=== PATIENT | female | born 1955 | race Caucasian/White ===

== ENCOUNTER 2021-12-03 15:36 | Emergency (ER) | payer MEDICARE, BC, SELFPAY ==
[2021-12-03 15:40] VITALS: BP 123/77; PULSE 79; RESP 18; TEMP 36.6; O2SAT 99; BMI 25.3
[2021-12-03 16:00] LABS: Appearance Urine Clear (Clear); Bilirubin Urine Negative (Negative); Blood Urine Negative (Negative); Color Urine Yellow (Yellow); Glucose Urine Negative (Negative); Ketones Urine Negative (Negative); Leukocyte Esterase Urine Trace (Negative); Nitrite Urine Negative (Negative); Protein Urine Negative (Negative); Specific Gravity Urine >= 1.030 (1.000-1.030); Urobilinogen Urine 0.2 (0.2-1.0); pH Urine 5.5 (5.0-8.5)
[2021-12-03 16:12] LABS: Squamous Epithelial Cell Urine Few (None-Few); WBC Urine 0-2 (0-5)
--- NOTE | 2021-12-03 17:40 | ED_ITS ---
HPI - General Adult General Time Seen by Provider: 17:40 Date Seen: 12/03/21 Chief complaint: Back Injury/Pain Stated complaint: Lower back/stomach/groin pain Time Seen by Provider: 12/03/21 17:40 Source: patient, RN notes reviewed and old records reviewed Mode of arrival: ambulatory Limitations: no limitations History of Present Illness HPI narrative: Patient is a very pleasant 66 with history of hypertension comes the emergency for low back patient notes that for few months she has had low. She notes that she cannot recall any specific injury and the pain does not go down into legs. She states that there was a thought that perhaps this was a kidney stone but she has not noticed any blood in her urine. She denies fever or chills. She notes that now in the past week she has had pain that wraps around onto her left abdomen and now involves the entire lower abdomen. She did tell nursing staff that she has had approximately 3 bowel movements today and that she feels somewhat bloated. She denies dysuria or hematuria. She has not had fever or chills. She notes a 15 lb weight loss over the past year but attributes that to not eating as much as she lost her and does not cook for herself patient denies any fever or chills or symptoms of COVID. Related Data Home Medications Medication Instructions Recorded Confirmed lisinopril 10 mg tablet 10 mg DAILY 12/03/21 sertraline 25 mg tablet 12.5 mg Q24H 12/03/21 Allergies Allergy/AdvReac Type Severity Reaction Status Date / Time No Known Drug Allergies Allergy Verified 12/03/21 15:47 Review of Systems Status of ROS: Reports: 10 or more systems reviewed and unremarkable except as noted in History and below Const: Reports: change in weight ( 15 lb weight loss); Denies: fever or chills Eyes: Denies: change in vision or blurry vision ENMT: Denies: throat pain, neck pain or difficulty swallowing Cardio: Denies: chest pain, palpitations or shortness of breath with exertion Resp: Denies: shortness of breath or cough GI: Reports: abdominal pain ( lower abdomen left greater than right) and nausea ( mild); Denies: vomiting, diarrhea or difficulty swallowing : Denies: painful urination, urinary frequency or blood in urine Musculo: Reports: back pain; Denies: neck pain or extremity pain Integ/Breast: Denies: rash Neuro: Denies: headache Psych: Denies: anxiety Endo: Denies: excessive urination [facility] Medical History No significant past medical history Social History Smoking Status: Never smoker Do you use any of these nicotine containing products: None How often do you have a drink containing alcohol: never How often do you have six or more drinks on one occasion: Never AUDIT-C Alcohol total score: 0 Non-prescribed substance use: denies use service: No Exam Const: Vital Signs, click to edit/add: Vital Signs - 24 hr 12/03/21 15:40 12/03/21 20:05 Temperature 97.8 F Pulse Rate [Right Pulse Oximeter] 79 65 Respiratory Rate 18 16 Blood Pressure [Ri ght Upper Arm] 123/77 137/88 Pulse Oximetry 99 99 Oxygen Delivery Me thod Room Air Room Air Documenting provider has reviewed patient's vital signs: yes Common normals: no apparent distress, average body habitus, oriented x3, no limitations, healthy appearing, alert and well nourished General appearance: cooperative, comfortable and well kempt HENMT: Common normals: normocephalic Head and scalp: normocephalic Eye: Common normals: PERRL General eye: normal appearance of both eyes Pupil: PERRL Neck & C-Spine: Common normals: full ROM and supple Resp: Common normals: normal respiratory effort and clear to auscultation bilaterally Effort & inspection: able to speak in complete sentences Auscultation: clear to auscultation bilaterally Cardio: Common normals: regular rate and regular rhythm Rate: regular rate Rhythm: regular rhythm GI: Common normals: soft to palpation and non-tender; mass(es) Palpation: soft : Common normals: no CVA tenderness Bladder/kidney exam: no CVA tenderness Back & Pelvis: Common normals: no CVA tenderness and no thoracic nor lumbar tenderness Lumbar spine/lower back: other soft tissue findings ( well-healed scar lumbar midline) Sacrum: no erythema Other: no evidence of blistering, rash. Extremity: Common normals: normal to inspection Neuro: Common normals: oriented x3 Sensorium/orientation: alert Motor exam: strength 5/5 throughout Psych: Common normals: mental status grossly normal and thought process normal Appearance: well kempt Thought process: normal thought process Skin: Common normals: no rashes or lesions noted General skin exam: no rashes or lesions noted Course Course Hospital Course: Patient has had low back pain now with radiation of the pain to the lower abdomen especially on the left. Exam is fairly benign. But given patient's symptoms, weight loss would recommend CT of the abdomen as well as laboratory studies to include a inflammatory markings as well as a CBC, comprehensive panel, urinalysis. Reevaluation(s) Reevaluation #1: Patient noted to have reassuring laboratory values which includes a normal CRP, white count. No abnormal LFTs. Urinalysis with 2-5 RBCs. Otherwise no evidence of UTI. Vital Signs Vital signs: Initial Vital Signs Temperature 97.8 F 12/03/21 15:40 Temperature Source Temporal Artery Scan 12/03/21 15:40 Pulse Rate 79 12/03/21 15:40 Respiratory Rate 18 12/03/21 15:40 Blood Pressure 123/77 12/03/21 15:40 Blood Pressure Mean 92 12/03/21 15:40 Blood Pressure Position Sitting 12/03/21 15:40 Pulse Oximetry 99 12/03/21 15:40 Oxygen Delivery Method 12/03/21 15:40 Vital Signs Temperature 97.8 F 12/03/21 15:40 Pulse Rate 79 12/03/21 15:40 Respiratory Rate 18 12/03/21 15:40 Blood Pressure 123/77 12/03/21 15:40 Pulse Oximetry 99 12/03/21 15:40 Oxygen Delivery Method 12/03/21 15:40 Temperature 97.8 F 12/03/21 15:40 Pulse Rate 65 12/03/21 20:05 Respiratory Rate 16 12/03/21 20:05 Blood Pressure 137/88 12/03/21 20:05 Pulse Oximetry 99 12/03/21 20:05 Oxygen Delivery Method 12/03/21 20:05 Medical Decision Making MDM Narrative Medical decision making narrative: 1. Low back pain-at this time CT is reassuring. This certainly could be a radiculitis that an MRI could Detected but patient certainly has no red flag symptoms tonight. Did demonstrate piriformis stretches for this patient I would like her to do these a few times a day. Recommend ice to area of discomfort in lieu of heat. Will need to follow up with primary for physical therapy order. Recommend strengthening. Ibuprofen or Tylenol may be used for discomfort. MRI suggested if not improving. 2. Abdominal pain -I do think this is likely radiation of the pain from the back. CT reassuring with no evidence of mass, diverticulitis, kidney stone. 3. Disposition - patient is discharged home. Return as needed for worsening symptoms. Follow-up with primary MD. Medical Records Medical records reviewed: Yes I reviewed the patient's medical records Lab Data Lab results reviewed: Yes I reviewed the patient's lab results Labs: Lab Results 12/03/21 12/03/21 12/03/21 Range/Units 15:51 18:03 18:03 WBC 6.95 (4.50-11.00) K/uL RBC 4.99 (4.00-5.20) m/uL Hgb 14.4 (12.0-16.0) gm/dL Hct 43.3 (33.0-51.0) % MCV 87 (80-100) fL MCH 29 (26-34) pg MCHC 33 (32-36) gm/dL RDW Coeff of Randi 13.0 (11.5-15.5) % Plt Count 280 (140-440) K/uL Neut % (Auto) 59.4 (42.0-72.0) % Lymph % (Auto) 30.2 (20-44) % [place] % (Auto) 5.8 (0.0-11.0) % Eos % (Auto) 3.3 (0.0-7.0) % Baso % (Auto) 1.2 (0.0-3.0) % Neut # (Auto) 4.13 (1.7-7.0) K/uL Lymph # (Auto) 2.10 (0.90-2.90) K/uL [place] # (Auto) 0.40 (0.00-0.90) K/UL Eos # (Auto) 0.23 (0.00-0.50) K/uL Baso # (Auto) 0.08 (0.00-0.30) K/uL Abs Immat Gran (auto) 0.01 (0.00-0.30) K/uL Sodium 139 (135-149) mmol/L Potassium 3.8 (3.6-5.1) mmol/L Chloride 104 (96-114) mmol/L Carbon Dioxide 23 (20-32) mmol/L BUN 19 (7-30) mg/dL Creatinine 0.7 (0.5-1.5) mg/dL Estimated Creat Clear 46.40 Estimated GFR 96 ml/min Glucose 90 (60-115) mg/dL Calcium 10.0 (8.4-10.6) mg/dL Total Bilirubin 0.6 (0.1-1.5) mg/dL AST 31 (12-35) U/L ALT 20 (4-35) U/L Alkaline Phosphatase 82 (40-150) U/L C-Reactive Protein < 0.5 L (0.5-1.0) mg/dL Total Protein 8.7 H (6.0-8.3) g/dL Albumin 5.3 H (3.3-5.0) g/dL Urine Color Yellow (Yellow) Urine Appearance Clear (Clear) Urine pH 5.5 (5.0-8.5) Ur Specific Mooers >= 1.030 (1.000-1.030) Urine Protein Negative (Negative) Urine Glucose (UA) Negative (Negative) Urine Ketones Negative (Negative) Urine Blood Negative (Negative) Urine Nitrite Negative (Negative) Urine Bilirubin Negative (Negative) Urine Urobilinogen 0.2 (0.2-1.0) Ur Leukocyte Esterase Trace A (Negative) Urine RBC 2-5 A (0-2) Urine WBC 0-2 (0-5) Ur Squamous Epith Cells Few (None-Few) Urine Bacteria None (None) Imaging Data CT scan - abdomen: Attestation: I have reviewed the pertinent imaging results. Radiologist's impression: Lower chest: Unremarkable. Liver: Unremarkable. Gallbladder and bile ducts: Several dependent gallstones. No gallbladder wall thickening or pericholecystic fluid. Spleen: Unremarkable. Pancreas: Unremarkable. Adrenal glands: Unremarkable. No nodules. Kidneys and Ureters: Unremarkable. No suspicious masses, stones, or hydronep hrosis. Cortical hypodensities are suggestive of cysts. Bilateral parapelvic cysts. Lymph Nodes and Retroperitoneum: Unremarkable. Vasculature: Unremarkable. GI tract: Unremarkable. Normal in caliber. Normal appendix. Peritoneum/Abdominal Wall: Unremarkable. No mass or infiltration. No free air or free fluid. Pelvic Viscera: Unremarkable. Bladder: Unremarkable. Bones: Posterior fusion of L3-L4 using transpedicular screws and segmental rods. Mild degenerative changes. No aggressive appearing lytic or blastic lesions. IMPRESSION: 1. Cholelithiasis without findings to suggest cholecystitis. 2. No other significant CT abnormality or findings to explain the cause of the patient`s symptoms. Discharge Plan Discharge Clinical Impression: Low back pain Patient Disposition: Home, Self-Care Condition: Improved Instructions: Back Pain (ED) Additional Instructions: piriformis stretches as demonstrated. Her profound or Tylenol as needed for pain. If you are not improving do suggest MRI of the lumbar spine. Return to the emergency room for onset of new symptoms including fever, vomiting and as needed Prescriptions: No Action lisinopril 10 mg tablet 10 mg DAILY Label Comments: TAKE ONE TABLET BY MOUTH ONE TIME DAILY sertraline 25 mg tablet 12.5 mg Q24H Label Comments: Take 1 Tablet (25 mg) by mouth every morning Follow Up/Referrals: Renata Mensah MD [Primary Care Provider] - Stand Alone Forms: [employer] Info Instructions
--- NOTE | 2021-12-03 17:49 | CRLHL7_ITS ---
For Patients: As a result of the Century Cures Act, medical imaging exams and procedure reports are released immediately into your electronic medical record. You may view this report before your referring provider. If you have questions, please contact your health care provider. INDICATION: Left abdominal pain radiates to back and groin. TECHNIQUE: CT abdomen and pelvis acquired with 70 mL Isovue 370 IV contrast. Coronal and sagittal reformats were generated. COMPARISON: None. FINDINGS: Lower chest: Unremarkable. Liver: Unremarkable. Gallbladder and bile ducts: Several dependent gallstones. No gallbladder wall thickening or pericholecystic fluid. Spleen: Unremarkable. Pancreas: Unremarkable. Adrenal glands: Unremarkable. No nodules. Kidneys and Ureters: Unremarkable. No suspicious masses, stones, or hydronephrosis. Cortical hypodensities are suggestive of cysts. Bilateral parapelvic cysts. Lymph Nodes and Retroperitoneum: Unremarkable. Vasculature: Unremarkable. GI tract: Unremarkable. Normal in caliber. Normal appendix. Peritoneum/Abdominal Wall: Unremarkable. No mass or infiltration. No free air or free fluid. Pelvic Viscera: Unremarkable. Bladder: Unremarkable. Bones: Posterior fusion of L3-L4 using transpedicular screws and segmental rods. Mild degenerative changes. No aggressive appearing lytic or blastic lesions. IMPRESSION: 1. Cholelithiasis without findings to suggest cholecystitis. 2. No other significant CT abnormality or findings to explain the cause of the patient`s symptoms. Please note that all CT scans at this facility use dose modulation, iterative reconstruction, and/or weight-based dosing when appropriate to reduce radiation dose to as low as reasonably achievable. Dictated by Benigno Garzon MD @ 12/03/2021 7:31:43 PM (Electronically Signed)
[2021-12-03 18:08] LABS: Basophils Absolute Auto 0.08 K/uL (0.00-0.30); Basophils Percent Auto 1.2 % (0.0-3.0); Eosinophils Absolute Auto 0.23 K/uL (0.00-0.50); Eosinophils Percent Auto 3.3 % (0.0-7.0); Hematocrit 43.3 % (33.0-51.0); Hemoglobin* 14.4 gm/dL (12.0-16.0); Immature Granulocytes Abs Auto 0.01 K/uL (0.00-0.30); Lymphocytes Percent Auto 30.2 % (20-44); Mean Corpuscular HGB Conc 33 gm/dL (32-36); Mean Corpuscular Hemoglobin 29 pg (26-34); Mean Corpuscular Volume 87 fL (80-100); Monocytes Percent Auto 5.8 % (0.0-11.0); Neutrophils Absolute Auto 4.13 K/uL (1.7-7.0); Neutrophils Percent Auto 59.4 % (42.0-72.0); Platelet Count* 280 K/uL (140-440); Red Blood Count 4.99 m/uL (4.00-5.20); White Blood Count* 6.95 K/uL (4.50-11.00)
[2021-12-03 18:09] LABS: Slide Review Reflex No
[2021-12-03 18:22] LABS: Albumin* 5.3 g/dL (3.3-5.0); Chloride* 104 mmol/L (96-114)
[2021-12-03 18:23] LABS: Potassium* 3.8 mmol/L (3.6-5.1); Sodium* 139 mmol/L (135-149)
[2021-12-03 18:25] LABS: Creatinine* 0.7 mg/dL (0.5-1.5); Estimated Glomerular Filt Rate 96 ml/min
[2021-12-03 18:26] LABS: Alanine Aminotransferase* 20 U/L (4-35); Alkaline Phosphatase* 82 U/L (40-150); Aspartate Amino Transferase* 31 U/L (12-35); Bilirubin Total* 0.6 mg/dL (0.1-1.5); Blood Urea Nitrogen* 19 mg/dL (7-30); Carbon Dioxide* 23 mmol/L (20-32); Glucose* 90 mg/dL (60-115); Total Protein* 8.7 g/dL (6.0-8.3)
[2021-12-03 18:29] LABS: C Reactive Protein* < 0.5 mg/dL (0.5-1.0)
[2021-12-03 20:05] VITALS: BP 137/88; PULSE 65; RESP 16; O2SAT 99
== END 2021-12-03 20:10 | disposition home or self-care (01) ==
PROVIDERS: Emergency Provider Family Medicine; PCP Family Medicine
DX: M54.50 Low back pain, unspecified (principal); R10.9 Unspecified abdominal pain
CPT/HCPCS: 36415; 74177; 80053; 81001; 85025; 86140; 99284; Q9967

== ENCOUNTER 2022-03-07 18:48 | Emergency (ER) | payer MEDICARE, BC, SELFPAY ==
[2022-03-07] VITALS (15 sets, daily range): BP systolic 111–133; BP diastolic 69–99; PULSE 58–71; RESP 14; TEMP 36.9; O2SAT 97–100; BMI 25.2
--- NOTE | 2022-03-07 19:29 | ED.CHESTPAIN ---
HPI - Chest Pain General Chief Complaint: Chest Pain Stated Complaint: Heart pain Time Seen by Provider: 03/07/22 18:54 History of Present Illness HPI narrative: This 67-year-old female comes in reporting some chest discomfort throughout the day today. She states that she walked through some deep snow yesterday and became whether short of breath but did not have any pain. She states she is normally very active and has good exercise tolerance. This morning she noticed some chest discomfort in the left upper anterior chest. She states that this was coming and going throughout the day. The pain was mild or moderate in severity and when she was distracted with daily activity she did notice it at all. She did not have any nausea, vomiting, lightheadedness, shortness of breath, or diaphoresis. Related Data Home Medications Medication Instructions Recorded Confirmed lisinopril 10 mg tablet 10 mg DAILY 12/03/21 sertraline 25 mg tablet 12.5 mg Q24H 12/03/21 calcium carbonate PO 03/07/22 rosuvastatin 5 mg tablet mg 03/07/22 Allergies Allergy/AdvReac Type Severity Reaction Status Date / Time No Known Drug Allergies Allergy Verified 03/07/22 19:04 Review of Systems Status of ROS Reports: 10 or more systems reviewed and unremarkable except as noted in History and below Narrative Constitutional: No fevers, no weight gain or loss. Eyes: No discharge. No vision changes. HENT: No congestion, no sore throat, no ear pain. Cardiovascular: Chest discomfort as described above. She reports episodes of palpitations. Respiratory: No shortness of breath, no wheezes, no cough. Gastrointestinal: No abdominal pain, no vomiting, no diarrhea. Genitourinary: No dysuria, no hematuria. Musculoskeletal: Normal range of motion. Skin: No rashes, no pruritis. Neurological: No dizziness, weakness, sensory change, speech change. Endo/Heme/Allergies: No bruising or bleeding. No polydipsia. Pysch: no suicidality, no anxiety, no insomnia. All other systems reviewed and are negative. [facility] Medical History No significant past medical history Social History Smoking Status: Never smoker Do you use any of these nicotine containing products: None Second hand tobacco smoke exposure: No How often do you have a drink containing alcohol: never How often do you have six or more drinks on one occasion: Never AUDIT-C Alcohol total score: 0 Non-prescribed substance use: denies use service: No Exam Narrative Exam Narrative: Constitutional: Well-developed, well-nourished, no acute distress. HEENT: Normocephalic, atraumatic. Neck: Normal range of motion. Nontender. Supple. Heart: Regular. No murmurs. Normal rate. Intact distal pulses. Lungs: Clear to auscultation. She reports some mild chest discomfort in the left upper anterior chest. This is not reproducible with palpating this area or when taking a deep breath. No wheezes, rhonchi, or rales. Abdomen: Normal bowel sounds. Nontender. No rebound tenderness. Genitalia: Deferred. Back: No midline tenderness. Normal range of motion. Extremities: Normal range of motion. No injury. Skin: Intact. No rash. Warm. No erythema or pallor. Neurologic: No altered sensation. No weakness. Alert and oriented. Psychiatric: No suicidality. No anxiety or depression. No insomnia. Nursing notes and vitals signs are reviewed. Const Vital Signs, click to edit/add: Vital Signs - 24 hr 03/07/22 18:59 03/07/22 19:07 03/07/22 19:31 Temperature 98.4 F Pulse Rate 70 Pulse Rate [Right Pulse Oximeter] 69 Respiratory Rate 14 Blood Pressure [Left Upper Arm] 133/99 H Pulse Oximetry 100 100 98 Oxygen Delivery Method Room Air Room Air 03/07/22 19:15 03/07/22 19:30 Temperature Pulse Rate 71 68 Pulse Rate [Right Pulse Oximeter] Respiratory Rate Blood Pressure [Left Upper Arm] Pulse Oximetry 99 99 Oxygen Delivery Method Course Vital Signs Vital signs: Initial Vital Signs Respiratory Effort Spontaneous 03/07/22 18:53 Respiratory Depth Normal 03/07/22 18:53 Respiratory Pattern 03/07/22 18:53 Vital Signs Temperature 98.4 F 03/07/22 18:59 Pulse Rate 69 03/07/22 18:59 Respiratory Rate 14 03/07/22 18:59 Blood Pressure 133/99 H 03/07/22 18:59 Pulse Oximetry 100 03/07/22 18:59 Oxygen Delivery Method 03/07/22 18:59 Temperature 98.4 F 03/07/22 18:59 Pulse Rate 68 03/07/22 19:30 Respiratory Rate 14 03/07/22 18:59 Blood Pressure 133/99 H 03/07/22 18:59 Pulse Oximetry 98 03/07/22 19:31 Oxygen Delivery Method 03/07/22 19:07 MDM - Chest Pain MDM Narrative Medical decision making narrative: This patient comes in with rather brief and intermittent chest discomfort that is mild to moderate in the left upper anterior chest. These symptoms really last for seconds and is not reproducible with deep breath or certain movements. EKG today returns with normal sinus rhythm and no sign of strain or injury. Troponin returns at 0 as does all of her labs returned in normal range. This was reassuring to the patient. Her symptoms are not suspicious for a cardiopulmonary etiology. I advised her to follow-up with her primary physician and if symptoms are recurrent to consider stress testing or stress echocardiogram. She can return to the emergency department if symptoms are worsening or recurrent. Lab Data Labs: Lab Results 03/07/22 03/07/22 03/07/22 Range/Units 19:54 19:54 19:54 WBC 5.46 (4.50-11.00) K/uL RBC 4.00 (4.00-5.20) m/uL Hgb 12.1 (12.0-16.0) gm/dL Hct 35.2 (33.0-51.0) % MCV 88 (80-100) fL MCH 30 (26-34) pg MCHC 34 (32-36) gm/dL RDW Coeff of Randi 12.7 (11.5-15.5) % Plt Count 230 (140-440) K/uL Neut % (Auto) 50.8 (42.0-72.0) % Lymph % (Auto) 36.6 (20-44) % Kimble % (Auto) 6.2 (0.0-11.0) % Eos % (Auto) 5.5 (0.0-7.0) % Baso % (Auto) 0.9 (0.0-3.0) % Neut # (Auto) 2.77 (1.7-7.0) K/uL Lymph # (Auto) 2.00 (0.90-2.90) K/uL Kimble # (Auto) 0.30 (0.00-0.90) K/UL Eos # (Auto) 0.30 (0.00-0.50) K/uL Baso # (Auto) 0.05 (0.00-0.30) K/uL Sodium 137 (135-149) mmol/L Potassium 4.2 (3.6-5.1) mmol/L Chloride 105 (96-114) mmol/L Carbon Dioxide 26 (20-32) mmol/L BUN 19 (7-30) mg/dL Creatinine 0.8 (0.5-1.5) mg/dL Estimated Creat Clear 45.78 Estimated GFR 81 ml/min Glucose 86 (60-115) mg/dL Calcium 9.2 (8.4-10.6) mg/dL POC Troponin I 0.00 L (0.01-0.04) ng/ml ECG Data Attestation: I personally reviewed and interpreted this ECG as follows: Interpretation: Normal sinus rhythm. Rate is 76 beats per minute. There are no ST or T-wave abnormalities. Discharge Plan Discharge Clinical Impression: Atypical chest pain Patient Disposition: Home, Self-Care Condition: Stable Additional Instructions: Continue current plans. Use [id number] medicines as needed and directed. Follow up with MD or return if worsening. Prescriptions: No Action lisinopril 10 mg tablet 10 mg DAILY Label Comments: TAKE ONE TABLET BY MOUTH ONE TIME DAILY sertraline 25 mg tablet 12.5 mg Q24H Label Comments: Take 1 Tablet (25 mg) by mouth every morning rosuvastatin 5 mg tablet Label Comments: TAKE ONE TABLET BY MOUTH AT BEDTIME calcium carbonate [Calcium 500] PO Follow Up/Referrals: Renata Mensah MD [Primary Care Provider] - Stand Alone Forms: [employer] Info Instructions
[2022-03-07 20:11] LABS: Basophils Absolute Auto 0.05 K/uL (0.00-0.30); Basophils Percent Auto 0.9 % (0.0-3.0); Eosinophils Percent Auto 5.5 % (0.0-7.0); Hematocrit 35.2 % (33.0-51.0); Hemoglobin* 12.1 gm/dL (12.0-16.0); Lymphocytes Percent Auto 36.6 % (20-44); Mean Corpuscular HGB Conc 34 gm/dL (32-36); Mean Corpuscular Hemoglobin 30 pg (26-34); Mean Corpuscular Volume 88 fL (80-100); Monocytes Percent Auto 6.2 % (0.0-11.0); Neutrophils Absolute Auto 2.77 K/uL (1.7-7.0); Neutrophils Percent Auto 50.8 % (42.0-72.0); Platelet Count* 230 K/uL (140-440); RDW Coefficient of Variation % 12.7 % (11.5-15.5); White Blood Count* 5.46 K/uL (4.50-11.00)
[2022-03-07 20:32] LABS: Chloride* 105 mmol/L (96-114); Potassium* 4.2 mmol/L (3.6-5.1); Sodium* 137 mmol/L (135-149)
[2022-03-07 20:34] LABS: Creatinine* 0.8 mg/dL (0.5-1.5); Est. Creatinine Clearance* 45.78; Estimated Glomerular Filt Rate 81 ml/min
[2022-03-07 20:35] LABS: Blood Urea Nitrogen* 19 mg/dL (7-30); Calcium* 9.2 mg/dL (8.4-10.6); Carbon Dioxide* 26 mmol/L (20-32); Glucose* 86 mg/dL (60-115); Slide Review Reflex No
== END 2022-03-07 21:08 | disposition home or self-care (01) ==
PROVIDERS: Emergency Provider Emergency Medicine Emergency Medical Services; PCP Family Medicine
DX: R07.9 Chest pain, unspecified (principal)
CPT/HCPCS: 36415; 80048; 84484; 85025; 93005; 94761; 99284

== ENCOUNTER 2023-06-29 11:59 | Outpatient (CLI) | payer MEDICARE, BC, SELFPAY ==
--- NOTE | 2023-06-29 13:00 | MR_ITS ---
Patient: GENE CAMPOS Facility:?[facility] Patient ID:?[id number] Site Patient ID:?[id number]. Site :?[id number] Study:?MRI-Spine Lumbar W/O-06/29/2023 1:33:28 PM Ordering Physician:JAISON FREIRE Final Report: Indication: Lumbar stenosis with neurogenic claudication Technique: Multiplanar, multisequence, MRI of the lumbar spine, obtained without contrast. Comparison: CT lumbar spine 09/19/2020 Findings: Slightly exaggerated lumbar lordosis. Grade 1 anterolisthesis at L3-4, status post transpedicular screw and denise fusion with decompressive laminectomy. Degenerative Schmorl`s node at the T12 superior endplate, and mild L3 superior endplate compression deformity, stable from 2020. No acute osseous abnormality. Mild focal bony edema of the left L5 pedicle, without discrete fracture line. Otherwise unremarkable bone marrow signal. The conus medullaris terminates at L1. No concerning findings identified in the paraspinal soft tissues. Incidentally noted cholelithiasis. Bony ankylosis across the right SI joint. T11-T12: Mild diffuse disc bulge. No significant neural foraminal or spinal canal stenosis. T12-L1: No significant neural foramen or spinal canal stenosis. L1-L2: Mild diffuse disc bulge, mild facet arthropathy. No right, mild left neural foraminal narrowing. No spinal canal stenosis. L2-L3: Facet arthropathy. No significant neural foraminal or spinal canal stenosis. L3-L4: Postop changes. No significant neural foraminal stenosis. Laminectomy decompression of the spinal canal. L4-L5: Diffuse disc bulge, left asymmetric facet arthropathy, medially directed left facet joint synovial cyst measuring 1.2 x 1.0 x 1.7 cm AP/TR/CC, impinging the descending left L5 nerve root along the lateral recess. No significant neural foraminal or central spinal canal stenosis. L5-S1: Mild diffuse disc bulge, facet arthropathy. No significant neural foraminal or spinal canal stenosis. Impression: 1. At L4-5, a 1.7 cm medially directed left facet joint synovial cyst impinges the descending left L5 nerve root along the lateral recess. 2. Stable posterior instrumented spinal fusion and decompressive laminectomy changes at L3-4. 3. Stable mild chronic L4 superior endplate compression deformity and grade 1 anterolisthesis at L3-4. 4. Scattered spondylosis elsewhere as detailed. No high-grade neural foraminal or central spinal canal stenosis. Dictated by Chyna Cantrell MD @ 06/29/2023 2:35:13 PM ----- ADDENDUM ----- It should also be noted that there is focal bony edema at the left L5 pedicle, compatible with stress reaction without discrete fracture line. Dictated by Chyna Cantrell MD @ Jun 29 2023 2:35PM Signed by:?Chyna Cantrell MD @06/29/2023 2:35:13 PM (Electronic Signature)
== END 2023-06-29 12:00 | disposition home or self-care (01) ==
LOC: MRI 12:00
PROVIDERS: PCP Family Medicine; Visit Provider Physician Assistant Surgical
DX: M48.062 Spinal stenosis, lumbar region with neurogenic claudication (principal); M43.16 Spondylolisthesis, lumbar region; Z98.1 Arthrodesis status
CPT/HCPCS: 72148

== ENCOUNTER 2023-08-24 16:43 | Emergency (ER) | payer MEDICARE, BC, SELFPAY ==
[2023-08-24 16:47] VITALS: BP 119/76; PULSE 75; RESP 18; TEMP 36.7; O2SAT 99; BMI 24.4
--- NOTE | 2023-08-24 17:09 | ED_ITS ---
HPI - Abdominal Pain General Chief Complaint: Abdominal Pain Stated Complaint: lower abdominal pain Time Seen by Provider: 08/24/23 16:55 History of Present Illness HPI narrative: This 68-year-old female comes in reporting lower abdominal pain that began 2 days ago. She states that it was intermittent pain for the 1st day or so but over the past 24 hours the pain has become more constant. She states that it is worse with certain movements. She reports that she feels this pain when taking each step when walking. She does not report any nausea, vomiting, dysuria, fever. She is otherwise in good health. Related Data Home Medications ?Medication ?Instructions ?Recorded ?Confirmed lisinopril 10 mg tablet 10 mg PO DAILY 12/03/21 08/24/23 sertraline 25 mg tablet 12.5 mg PO Q24H 12/03/21 08/24/23 calcium carbonate See Rx Instructions PO .COMPLEX 03/07/22 08/24/23 rosuvastatin 5 mg tablet mg 03/07/22 08/04/22 loratadine 10 mg tablet (Claritin) 10 mg PO QDAY 08/04/22 08/24/23 ulswicaddeic-Go-fcsu-minerals 18 tab PO 08/04/22 08/04/22 mg-0.4 mg tablet Previous Rx's ?Medication ?Instructions ?Recorded amoxicillin 875 mg-potassium 1 tab PO BID #14 tabs 08/24/23 clavulanate 125 mg tablet Allergies Allergy/AdvReac Type Severity Reaction Status Date / Time No Known Drug Allergies Allergy Unverified 08/04/22 08:31 Review of Systems Status of ROS Reports: 10 or more systems reviewed and unremarkable except as noted in History and below Narrative Constitutional: No fevers, no weight gain or loss. Eyes: No discharge. No vision changes. HENT: No congestion, no sore throat, no ear pain. Cardiovascular: No chest pain, no palpitations. Respiratory: No shortness of breath, no wheezes, no cough. Gastrointestinal: No vomiting, no diarrhea. Lower abdominal pain as described above. Genitourinary: No dysuria, no hematuria. Musculoskeletal: Normal range of motion. Skin: No rashes, no pruritis. Neurological: No dizziness, weakness, sensory change, speech change. Endo/Heme/Allergies: No bruising or bleeding. No polydipsia. Pysch: no suicidality, no anxiety, no insomnia. All other systems reviewed and are negative. [facility] Medical History (Updated 08/24/23 @ 19:15 by Rashard To MD) No significant past medical history Surgical History (Updated 08/04/22 @ 08:37 by Ivon Rao ~ [facility], [facility]) History of back surgery (~2007) ?Z98.890 - Other specified postprocedural states (ICD-10) Social History Smoking Status: Former smoker Do you use any of these nicotine containing products: None Second hand tobacco smoke exposure: No How often do you have a drink containing alcohol: never How often do you have six or more drinks on one occasion: Never AUDIT-C Alcohol total score: 0 Non-prescribed substance use: denies use service: No Exam Narrative: Exam Narrative: Constitutional: Well-developed, well-nourished, no acute distress. HEENT: Normocephalic, atraumatic. Neck: Normal range of motion. Nontender. Supple. Heart: Regular. No murmurs. Normal rate. Intact distal pulses. Lungs: Clear to auscultation. No chest discomfort. No wheezes, rhonchi, or rales. Abdomen: Normal bowel sounds. Tenderness in the lower abdomen, left greater than right. There is mild rebound tenderness also. Genitalia: Deferred. Back: No midline tenderness. Normal range of motion. Extremities: Normal range of motion. No injury. Skin: Intact. No rash. Warm. No erythema or pallor. Neurologic: No altered sensation. No weakness. Alert and oriented. Psychiatric: No suicidality. No anxiety or depression. No insomnia. Nursing notes and vitals signs are reviewed. Const: Vital Signs, click to edit/add: Vital Signs - 24 hr 08/24/23 16:47 Temperature 98.0 F Pulse Rate [Right Pulse Oximeter] 75 Respiratory Rate 18 Blood Pressure [Ri ght Upper Arm] 119/76 Pulse Oximetry 99 Oxygen Delivery Me thod Room Air Course Vital Signs Vital signs: Initial Vital Signs Temperature 98.0 F 08/24/23 16:47 Temperature Source Temporal Artery Scan 08/24/23 16:47 Pulse Rate 75 08/24/23 16:47 Respiratory Rate 18 08/24/23 16:47 Blood Pressure 119/76 06/18/24 16:47 Blood Pressure Mean 90 08/24/23 16:47 Blood Pressure Position Sitting 08/24/23 16:47 Pulse Oximetry 99 08/24/23 16:47 Oxygen Delivery Method Room Air 08/24/23 16:47 Vital Signs Temperature 98.0 F 08/24/23 16:47 Pulse Rate 75 08/24/23 16:47 Respiratory Rate 18 08/24/23 16:47 Blood Pressure 119/76 08/24/23 16:47 Pulse Oximetry 99 08/24/23 16:47 Oxygen Delivery Method Room Air 08/24/23 16:47 Temperature 98.0 F 08/24/23 16:47 Pulse Rate 75 08/24/23 16:47 Respiratory Rate 18 08/24/23 16:47 Blood Pressure 119/76 08/24/23 16:47 Pulse Oximetry 99 08/24/23 16:47 Oxygen Delivery Method Room Air 08/24/23 16:47 MDM - Abdominal Pain MDM Narrative Medical decision making narrative: This 68-year-old female comes in with abdominal pain that is more localized in left lower quadrant and seems to be worse with movement. Her symptoms are suspicious for diverticulitis. She has not had this diagnosis in the past. She did have a colonoscopy a year 2 ago and states that the report was normal. The patient does have some rebound tenderness. I did recommend an IV contrast CT scan of the abdomen and pelvis. This was obtained and does show evidence of uncomplicated diverticulitis in the mid sigmoid colon. Are lab results returned with normal findings. I did explain to the patient that there is current evidence that seems to show that treating with antibiotic for this condition does not seem to bring any distinct benefit compared to supportive cares. I did offer to treat with antibiotic and the patient agreed to receive a prescription for Augmentin. She will decide if she wishes to start this medicine. I did describe signs and symptoms that would indicate a need for return and re- evaluation. Lab Data Labs: Lab Results 08/24/23 08/24/23 08/24/23 Range/Units 17:18 17:22 18:30 WBC 6.35 (4.50-11.00) K/uL RBC 4.59 (4.00-5.20) m/uL Hgb 13.8 (12.0-16.0) gm/dL Hct 41.8 (33.0-51.0) % MCV 91 (80-100) fL MCH 30 (26-34) pg MCHC 33 (32-36) gm/dL RDW Coeff of Randi 11.8 (11.5-15.5) % Plt Count 241 (140-440) K/uL Neut % (Auto) 60.5 (42.0-72.0) % Lymph % (Auto) 26.5 (20-44) % [place] % (Auto) 7.6 (0.0-11.0) % Eos % (Auto) 4.6 (0.0-7.0) % Baso % (Auto) 0.8 (0.0-3.0) % Neut # (Auto) 3.85 (1.7-7.0) K/uL Lymph # (Auto) 1.68 (0.90-2.90) K/uL [place] # (Auto) 0.50 (0.00-0.90) K/UL Eos # (Auto) 0.29 (0.00-0.50) K/uL Baso # (Auto) 0.05 (0.00-0.30) K/uL Abs Immat Gran (auto) 0.00 (0.00-0.30) K/uL Imm/Tot Granulo (auto) 0.0 % Sodium 138 (135-149) mmol/L Potassium 4.4 (3.6-5.1) mmol/L Chloride 102 (96-114) mmol/L Carbon Dioxide 29 (20-32) mmol/L Anion Gap 7 (7-15) mEq/L BUN 18 (7-30) mg/dL Creatinine 0.7 (0.5-1.5) mg/dL Estimated Creat Clear 45.16 Estimated GFR 95 ml/min Glucose 96 (60-115) mg/dL Calcium 9.9 (8.4-10.6) mg/dL Urine Color Yellow (Yellow) Urine Appearance Clear (Clear) Urine pH 5.5 (5.0-8.5) Ur Specific Ward 1.015 (1.000-1.030) Urine Protein Negative (Negative) Urine Glucose (UA) Negative (Negative) Urine Ketones Negative (Negative) Urine Blood Negative (Negative) Urine Nitrite Negative (Negative) Urine Bilirubin Negative (Negative) Urine Urobilinogen 0.2 (0.2-1.0) Ur Leukocyte Esterase Negative (Negative) POC Creatinine 0.9 (0.6-1.3) mg/dl Imaging Data CT scan - abdomen: Radiologist's impression: Acute uncomplicated diverticulitis of the mid sigmoid colon. No evidence of perforation or abscess. Discharge Plan Discharge Clinical Impression: Diverticulitis Patient Disposition: Home, Self-Care Condition: Stable Additional Instructions: Take medication as prescribed. Follow up with MD as needed or return if symptoms are persistent or recurrent or worsening. Prescriptions: New amoxicillin-pot clavulanate 875-125 mg tablet 1 tab PO BID Qty: 14 0RF No Action mlfibdrfgvmb-Yv-fdcr-minerals 18-0.4 mg tablet PO loratadine [Claritin] 10 mg tablet 10 mg PO QDAY lisinopril 10 mg tablet 10 mg PO DAILY Patient Comments: TAKE ONE TABLET BY MOUTH ONE TIME DAILY sertraline 25 mg tablet 12.5 mg PO Q24H Patient Comments: Take 1 Tablet (25 mg) by mouth every morning rosuvastatin 5 mg tablet Patient Comments: TAKE ONE TABLET BY MOUTH AT BEDTIME calcium carbonate [Calcium 500] See Rx Instructions PO .COMPLEX Rx Instructions: orally; Follow Up/Referrals: Renata Mensah MD [Primary Care Provider] - Stand Alone Forms: [employer] Info Instructions
--- NOTE | 2023-08-24 17:10 | CRLHL7_ITS ---
For Patients: As a result of the Century Cures Act, medical imaging exams and procedure reports are released immediately into your electronic medical record. You may view this report before your referring provider. If you have questions, please contact your health care provider. INDICATION: Lower abdominal pain. TECHNIQUE: CT of the abdomen and pelvis acquired with 68 cc Isovue 370 IV contrast. Coronal and sagittal reconstructions. COMPARISON: CT of the abdomen and pelvis 12/03/2021. FINDINGS: The liver, spleen, pancreas, and adrenal glands are negative. Cholelithiasis without evidence of gallbladder inflammation. No biliary dilation. Hepatic and portal veins are patent. Symmetric enhancement of the kidneys. Bilateral parapelvic cysts similar to prior exam. Few subcentimeter left renal cortical hypodensities are too small to characterize but unchanged. No new hydronephrosis or ureteral dilation. No obstructing urinary calculi identified. No bladder wall thickening. Uterus is unremarkable. No small bowel dilation. Mild amount of stool throughout the colon. There is minimal wall thickening of the mid sigmoid colon with inflammatory fat stranding surrounding a diverticulum in this region. Findings are compatible with acute diverticulitis. No intraperitoneal free air or fluid. No evidence of abscess. Negative appendix. No lymphadenopathy. Aortoiliac vascular calcifications. Degenerative changes of the spine. Posterior instrumented fusion of L3-L4 which causes streak artifact. The lung bases are clear. IMPRESSION: Acute uncomplicated diverticulitis of the mid sigmoid colon. No evidence of perforation or abscess. Please note that all CT scans at this facility use dose modulation, iterative reconstruction, and/or weight-based dosing when appropriate to reduce radiation dose to as low as reasonably achievable. Dictated by Dinah Escamilla MD @ 08/24/2023 6:40:50 PM (Electronically Signed)
[2023-08-24 17:39] LABS: Creatinine, Point-of-Care* 0.9 mg/dl (0.6-1.3)
[2023-08-24 17:43] LABS: Basophils Absolute Auto 0.05 K/uL (0.00-0.30); Basophils Percent Auto 0.8 % (0.0-3.0); Eosinophils Absolute Auto 0.29 K/uL (0.00-0.50); Eosinophils Percent Auto 4.6 % (0.0-7.0); Hematocrit 41.8 % (33.0-51.0); Hemoglobin* 13.8 gm/dL (12.0-16.0); Lymphocytes Absolute Auto 1.68 K/uL (0.90-2.90); Lymphocytes Percent Auto 26.5 % (20-44); Mean Corpuscular HGB Conc 33 gm/dL (32-36); Mean Corpuscular Hemoglobin 30 pg (26-34); Mean Corpuscular Volume 91 fL (80-100); Monocytes Percent Auto 7.6 % (0.0-11.0); Neutrophils Absolute Auto 3.85 K/uL (1.7-7.0); Neutrophils Percent Auto 60.5 % (42.0-72.0); Platelet Count* 241 K/uL (140-440); RDW Coefficient of Variation % 11.8 % (11.5-15.5); Red Blood Count 4.59 m/uL (4.00-5.20); White Blood Count* 6.35 K/uL (4.50-11.00)
[2023-08-24 17:58] LABS: Slide Review Reflex No
[2023-08-24 18:09] LABS: Chloride* 102 mmol/L (96-114)
[2023-08-24 18:10] LABS: Potassium* 4.4 mmol/L (3.6-5.1); Sodium* 138 mmol/L (135-149)
[2023-08-24 18:12] LABS: Creatinine* 0.7 mg/dL (0.5-1.5); Est. Creatinine Clearance* 45.16; Estimated Glomerular Filt Rate 95 ml/min
[2023-08-24 18:13] LABS: Anion Gap 7 mEq/L (7-15); Blood Urea Nitrogen* 18 mg/dL (7-30); Calcium* 9.9 mg/dL (8.4-10.6); Carbon Dioxide* 29 mmol/L (20-32); Glucose* 96 mg/dL (60-115)
[2023-08-24 18:42] LABS: Appearance Urine Clear (Clear); Bilirubin Urine Negative (Negative); Blood Urine Negative (Negative); Color Urine Yellow (Yellow); Glucose Urine Negative (Negative); Ketones Urine Negative (Negative); Leukocyte Esterase Urine Negative (Negative); Nitrite Urine Negative (Negative); Protein Urine Negative (Negative); Specific Gravity Urine 1.015 (1.000-1.030); Urobilinogen Urine 0.2 (0.2-1.0); pH Urine 5.5 (5.0-8.5)
== END 2023-08-24 19:24 | disposition home or self-care (01) ==
PROVIDERS: Emergency Provider Emergency Medicine Emergency Medical Services; PCP Family Medicine
DX: K57.92 Diverticulitis of intestine, part unspecified, without perforation or abscess without bleeding (principal)
CPT/HCPCS: 36415; 74177; 80048; 81003; 82565; 85025; 99284; 99285; Q9967

== ENCOUNTER 2023-10-12 09:55 | Outpatient (CLI) | payer MEDICARE, BC, SELFPAY | END 2023-10-12 09:56 | disposition home or self-care (01) | LOC: INJ CL 09:56 | PROVIDERS: PCP Family Medicine; Visit Provider Family Medicine | DX: M54.16 Radiculopathy, lumbar region (principal); M51.36 Other intervertebral disc degeneration, lumbar region | CPT/HCPCS: 64483; J1100; Q9966 ==

== ENCOUNTER 2023-12-21 07:33 | Outpatient (CLI) | payer MEDICARE, BC, SELFPAY | END 2023-12-21 07:34 | disposition home or self-care (01) | PROVIDERS: PCP Family Medicine; Visit Provider Family Medicine | DX: M47.816 Spondylosis without myelopathy or radiculopathy, lumbar region (principal) | CPT/HCPCS: 64493; J2250; J3010; Q9966 ==

== ENCOUNTER 2024-04-13 14:06 | Emergency (ER) | payer MEDICARE, BC, SELFPAY ==
--- OUTSIDE RECORDS SUMMARY | 2024-04-13 14:08 | XMS_ITS | Clinical Summary ---
Author Organization [facility] Address [address], [place] [address] Care Team Providers Care Radial Drill Operator For Plastic Name Role Phone Clinician, Not Found MD Primary Care Provider Un available Source Comments You are receiving this document as you are listed as the primary care provider,follow-up provider, or the patient has been referred to you for consultation.This is in compliance with the Medicare and[facility] EHR Incentive Program,which states Providers who transition their patient to another setting of careor provider of care or refers their patient to another provider of care shouldprovide summary care record for each transition of care or referral. [employer] Allergies No known active allergies Medications Medication Sig Dispensed Refills Start Date End Date Status predniSONE (DELTASONE) 20 MG tablet TAKE 3 TABLETS (60 MG) BY MOUTH ONCE DAILY ON DAYS 1-3, THEN DECREASE TO 2 TABLETS (40 MG) ONCE DAILY ON DAYS 4-6, THEN DECREASE TO 1 TABLET 03/16/2020 Active hydrocortisone 2.5 % cream Apply topically. 02/15/2020 Active nortriptyline (PAMELOR) 25 MG capsule TAKE ONE CAPSULE EVERY OTHER DAY AT BEDTIME 12/12/2019 Active cyclobenzaprine (FLEXERIL) 10 MG tablet Take 1 Tablet by mouth two times daily as needed. 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 Body Mass Index 25.69 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 Plan of Treatment Health Maintenance Due Date Last Done Comments Colon Cancer Screening Plan Due 1955 Hep C Screening (Preventive Services) 1955 Mammogram 1955 Adult Preventive Visit 02/20/1974 Cholesterol 02/20/2001 Pneumococcal 65+ Yrs (1 - PCV) 02/20/2021 COVID-19 Vaccine (3 - season) 2023 07/02/2020, 06/11/2020 Influenza (#1) 2023 11/28/2019, 11/06, 12/27/2017, Additional history exists DTaP/Tdap/Td (3 - Tdap) 12/05/2028 12/06/19, 06/04/2008, 06/29/1992 RSV (1 - 1-dose 75+ series) 02/20/2031 Zoster/Shingles Completed 05/16/2019, 12/06, 09/28/2016 HepA Aged Out No longer eligi ble based on patient's age to complete this topic HepB Aged Out No longer eligi ble based on patient's age to complete this topic Hib Aged Out No longer eligi ble based on patient's age to complete this topic IPV (Polio) Aged Out No longer eligi ble based on patient's age to complete this topic MCV4 Aged Out No longer eligi ble based on patient's age to complete this topic Care Teams Radial Drill Operator For Plastic Relationship Specialty Start Date End Date Clinician, Not Found, [facility] [place] [address] PCP - General 03/19/20
--- OUTSIDE RECORDS SUMMARY | 2024-04-13 14:08 | XMS_ITS | Continuity of Care Document ---
Author Organization [facility] Address [address] [place] [address] Phone Care Team Providers Care Decaler Name Role Phone Eckroth Blas BRITO Unavailable Unavailable Allergies, Adverse Reactions, Alerts Substance Reaction Status Criticality No Known Allergies Active No Inform ation Medications Medication Instructions Dosage Effective Dates (start - stop) Status Comments LISINOPRIL (unknown strength) Not Available - Active CRESTOR (unknown strength) Not Available - Active LORATADINE (unknown strength) Not Available - Active SERTRALINE HCL (unknown strength) Not Available - Active TOSYMRA (unknown strength) Not Available - Active Procedures Procedure Date Office/Outpatient Visit,Est, Mod 2023 Office/Outpatient Visit,New, Mod 2023 X-Ray Exam Lwr Spine, Min 4 Views Office/outpatient visit,est, mod 2008 X-ray exam lower spine 2-3 views 2008 Postop followup visit X-ray exam lower spine 2-3 views 2008 Postop followup visit X-ray exam lower spine 2-3 views 2008 Lumbar spine fusion, posterolateral Insert spine fixation, posterior 2008 Autograft, spine surgery, local 009 Allograft, spine surg, morselized Decompress lumbar spinalcord seg 2008 PA Assist Lumbar spine fusion, posterola teral PA Assist Insert spine fixation, posteri or PA Assist Decompress lumbar spinalcord s eg Office/outpatient visit,est, low 2008 Office consultation, moderate 9 X-ray exam lower spine 2-3 views 2008 Advance Directives Directive Yes / No Effective Date File Name No Information Encounters Encounter Description Practice Location Reason(s) For Visit Diagnoses Date Provider Providers Copied on Encounter [facility], [address], [place], [place], [id number], [place] tel:[phone] [facility] No Information 4 Edel Odonnell. [address], [place], [place], [id number] , [place]. tel:[phone] Office/Outpat ient Visit,Est, Mod [facility], [address], [place], [place], [id number], [place] tel:[phone] [facility] Spinal stenosis, lumbar region with neurogenic claudication 4 Krista Oro. [facility] [place], [address] [place] [address] [address], [place], [place], [address] , [place]. tel:[phone] Referring Provider: Shorty Velasco, [facility] [address], [place], [address] . tel:[phone] Office/Outpat ient Visit,New, Mod [facility], [address], [place], [place], [id number], [place] tel:[phone] [facility] Spinal stenosis, lumbar region with neurogenic claudicationS pondylolisthe sis, lumbar region 4 Edel Odonnell. [address] [place] [address] [address], [place], [place], [id number] , [place]. [phone] Referring Provider: Blas Balbuena, [address], [place], [address] . tel:[phone] Office/outpat ient visit,est, mod Z [facility] [place], [address], [place], [address], [place] tel:[phone] [employer] No Information 0 7-200 9 Mehbod Amir. [facility], [address], [place], [place], [address] , [place]. tel:[phone] Referring Provider: Mariza Guzmán, [facility] [address], [place], [address] . tel:[phone] Z [facility], [address], [place], [place], [facility], [place] tel:[phone] [employer] No Information 2 4-200 9 Mehbod Amir. [facility], [address], [place], [place], [address] , [place]. tel:[phone] Referring Provider: Mariza Guzmán, [facility] [address], [place], [address] . tel:[phone] Z [facility], [address], [place], [address], [place] tel:[phone] [employer] No Information 3-200 9 Mehbod Amir. [facility], [address], [place], [place], [address] , [place]. tel:[phone] Referring Provider: Mariza Guzmán, [facility] [address], [place], [address] . tel:[phone] Z [facility], [address], [place], [address], [place] tel:[phone] [facility] No Information 0 3-200 9 Mehbod Amir. [facility], [address], [place], [place], [address] , [place]. tel:[phone] Referring Provider: Mariza Guzmán, [facility] [address], [place], [address] . tel:[phone] Office/outpat ient visit,est, low Z [facility], [address] [place], [place] [address], [place], [address], [place] tel:[phone] [email or web address] [place] No Information 9 Mehbod Amir. [facility] [place], [address] [place] [address] [address], [place], [place], [id number] , [place]. [phone] Referring Provider: Mariza Guzmán, [place] [address], [place], [address] . tel:[phone] Office consultation, moderate Z [facility] [place], [address] [place], [place] [address], [place], [place], [facility], [place] tel:[phone] [email or web address] [place] No Information 9 Mehbod Amir. [facility] [place], [address] [place] [address] [address], [place], [place], [id number] , [place]. [phone] Referring Provider: Mariza Guzmán, [place] [address], [place], [address] . tel:[phone] Family History Family Member Type Diagnosis Age At Onset No Information Payers Payer name Insurance type Covered republican ID Alex vasquez(s) [facility] [id number] Medicare [facility] [id number] Social History Type Description Quantity Date Captured Comments Sex Female Smoking Status No Information Chief Complaint And Reason For Visit No Information Reason For Referral Reason For Referral No Information Plan Of Treatment Date Type Action Status Appointment Nancy Gooden BOOKED Appointment Nancy Gooden BOOKED Future Order: Radiology Order AP -Ffr-Dvyu-Kph Lum ([id number]), Ordered on: Ordered History Of Present Illness Encounter Date Complaint History Of Prese nt Illness No Information Functional Status Date Functional Assessmen t No Information Instructions Date Instruction Additional Infor mation No Information Assessments Type Assessment Date No Information Patient Care Teams Name Effective Dates (start - stop) Status Members No Information
--- OUTSIDE RECORDS SUMMARY | 2024-04-13 14:08 | XMS_ITS | Clinical Summary ---
Author Organization [facility] Address [place], [place] [address] Care Team Providers Care Agricultural Sales Representative Name Role Phone Renata Mensah MD Primary Care Provider Heather Cartwright MD Unavailable [phone] GadekDash MD Unavailable [phone] Allergies No known active allergies Medications loratadine (CLARITIN) 10 mg tablet Take 1 tablet by mouth once daily. 0 2 Active multivitamin (CHEWABLE MULTI VITAMIN) chew Take 1 tablet by mouth once daily. 0 7 Active SUMAtriptan (IMITREX) 25 mg tabletIndications: Migraine syndrome Take 1 Tablet (25 mg) by mouth every 2 hours if needed for Migraine. Give at minimum 2hrs apart. Max Dose: 200mg per 24hrs. 10 Tablet 3 2 Active sertraline (ZOLOFT) 50 mg tabletIndications: Anxiety Take 1 Tablet (50 mg) by mouth once daily in the morning. 90 Tablet 3 4 Active hydrocortisone (ANUSOL-HC) 2.5 % rectal creamIndications:H emorrhoids, external Apply topically to affected area(s) two times daily. 28 g 5 4 Active lisinopriL (PRINIVIL; ZESTRIL) 10 mg tabletIndications: HTN (hypertension) Take 1 Tablet (10 mg) by mouth once daily. 90 Tablet 3 4 Active rosuvastatin (CRESTOR) 5 mg tabletIndications: Mixed hyperlipidemia Take 1 Tablet (5 mg) by mouth at bedtime. 90 Tablet 3 4 Active amoxicillin 500 mg capsuleIndications :Acute otitis media, right Take 2 Capsules (1,000 mg) by mouth two times daily for 7 days. 28 Capsule 5 025 Active Problems Problem Noted Date Diagnosed Date HTN (hypertension) 12/01/2023 Mixed hyperlipidemia 12/01/2023 Lumbar stenosis with neurogenic claudication 01/2024 Pap smear for cervical cancer screening 12/31/19 Overview (12/30/2021): 11/2021 NIL/ HPV negative Plan: Routine screening Screen for colon cancer 07/17/2011 Overview (02/13/2022): Colonoscopy 07/2011 normal repeat in 10 years Colonoscopy 02/2022 normal, repeat in 10 years Bradycardia 08/09/2008 Displacement of lumbar inter vertebral disc without myelopathy Encounters Date Type Department Care Team Description 03/13/2024 2:30 PM DUPLICATOR PUNCH SET UP OPERATOR Office Visit [facility] [address] [place] [address] Shanthi Warren PA URHerbert 03/13/2024 Travel 03/13/2024 Telephone [facility] [address] [place] [address] Renata Mensah MD Medication Management (ANTIBIOTIC ) from Last 3 Months Immunizations Name Administration Dates Next Due AMB Influenza, IIV3 (Age >=3 years)(Flu Clinic Only) 01/10/2008 AMB Influenza, IIV4 PF (=>6 mos Flulaval,Fluzone Fluarix)(Flu Clinic Only) 11/28/2019 COVID-19 VACCINE SPIKEVAX (M ODERNA 50MCG/0.5ML) 12YO+ PFS 12/01/2023 COVID-19 vaccine (LoanTek-Bio NTech 30mcg/0.3mL) 12YO+ BIVALENT PF, MDV 03/13/2022 COVID-19 vaccine (LoanTek-Bio NTech 30mcg/0.3mL) PF, MDV 02/17/2021,07/02/2020,06/11/2020 Influenza, High-dose Inactivated 12/31/2020 Influenza, IIV3 (Age >=3 years) 12/13/2015,12/02 Influenza, IIV4 11/18/2018, 8,12/13/2015,2014,12/01/2013,01/10/2013 Influenza, Inactivated AIIV4 (Age 65+ Years) Preserv Free 11/12/2021 Influenza, Inactivated IIV3 (Age 65+ Years) Preserv Free 12/01/2023 Influenza,CCIIV4 PRESERV FREE 04/08/2017 Pneumococcal Conj 20-valent (Prevnar 20) 11/12/2021 Td (Age >=7 Years) 06/29/1992 Tdap 12/05/2018,06/04/2008 Zoster (Shingrix-RZV, recombinant) 05/16/2019, Zoster (Zostavax-ZVL, live) 09/28/2016 Family History Medical History Relation Name Comments COPD Father Heart Disease Father Atrial fibrillation Mother Coronary artery disease Mother Margaret nary Stents x1 Good Health Mother Hearing loss Mother Heart Disease Mother Heart attack Mother Other Mother Pacemaker Atrial fibrillation Sister Little S abelardoter Cancer-breast No Family History Relation Name Status Comments Father (Age 80) COPD-End S tage Mother Alive Sister Alive Social History Tobacco Use Types Packs/Day Years Used Date Smoking Tobacco: Former Cigarettes 0.1 3 0 03/16/1984 - 03/16/1987 Smokeless Tobacco: Never Tobacco Cessation:Counseling Given: Yes Comments:Smoked socially in HS Alcohol Use Standard Drinks/Week Comments No 0 (1 standard drink = 0.6 oz pure alcohol) Sober 35 years as of 02/24/2021. PHQ-2 Answer Date Recorded PHQ-2 TOTAL SCORE 0 12/01/2023 Social Connections Answer Date Recorded Do you often feel lonely or isolated from those around you? 0 10/04/2023 Financial Resource Strain Answer Date R ecorded Difficulty of Paying Living Expenses 3 10/04/2023 Difficulty of Paying Living Expenses Not on file 10/04/2023 Food Insecurity Answer Date Recorded Do you worry your food will run out before you are able to buy more? 1 10/04/2023 Transportation Needs Answer Date Record ed Does lack of transportation keep you from medica l appointments? 1 10/04/2023 Does lack of transportation keep you from work, meetings or getting things that you need? 1 10/04/2023 Housing Stability Answer Date Recorded What is your housing situation today? 1 10/04/2023 Utilities Answer Date Recorded Do you have trouble paying f or utilities (for example, heat, electricity, water, phone)? 1 10/04/2023 Comments No Sex and Gender Information Value Date Recorded Sex Assigned at Not on file Legal Sex Female 5:18 AM DUPLICATOR PUNCH SET UP OPERATOR Gender Identity Not on file Sexual Orientation Not on file Obstetrics History Last Filed Vital Signs Vital Sign Reading Time Taken Comments Blood Pressure 127/84 03/13/2024 1:35 PM DUPLICATOR PUNCH SET UP OPERATOR Pulse 78 03/13/2024 1:35 PM DUPLICATOR PUNCH SET UP OPERATOR Temperature 36.8 C (98.2 F) 03/13/2024 1:35 PM DUPLICATOR PUNCH SET UP OPERATOR Respiratory Rate 18 02/24/2021 10:46 AM DUPLICATOR PUNCH SET UP OPERATOR Oxygen Saturation 100% 03/13/2024 1:35 PM DUPLICATOR PUNCH SET UP OPERATOR Inhaled Oxygen Concentration - - Weight 63.5 kg (140 lb) 03/13/2024 1:35 PM DUPLICATOR PUNCH SET UP OPERATOR Height 158.8 cm (5' 2.5) 12/01/2023 9:55 AM CDT Body Mass Index 25.2 12/01/2023 9:55 AM CDT Plan of Treatment Health Maintenance Due Date Last Done Comments Mammogram for age 45-75 09/13/2024 09/14/19, 08/27/2021, 04/17/2020, Additional history exists BMI (ht and wt on same day) for age 18+ 11/30/2024 12/01/2023, 10/04/2023, 10/01/2022, Additional history exists Depression screening for age 12+ 11/30/2024 12/01/2023, 10/04/2023, 10/02/2022, Additional history exists Medicare Wellness for age 65+ 12/01/2024 12/01/2023, 11/12/2021 Lipids for age 45-75 10/03/2028 10/04/2023, 10/01/2022, 12/08/2021, Additional history exists Tetanus booster 12/05/2028 12/05/2018, 05/08, 06/29/1992 RSV vaccine for adults or (1 - 1-dose 75+ series) 02/20/2031 Colonoscopy through age 75 02/14/203202/13, 02/13/2022, 07/17/2011, Additional history exists Tdap Completed 12/05/2018, 06/04/2008 Zoster (shingles) series for age 50+ Completed 05/16/2019, 12/21/2018, 09/28/2016 Hepatitis C screening for ag e 18-79 Completed 04/15/2020 Pneumococcal series for age 50+ Completed DEXA/DXA scan for age 65+ Completed 12/08/2021 COVID-19 vaccine series Completed 12/01/19, 01/21/2023, 03/13/2022, Additional history exists Influenza for age 65+ Completed 12/01/2023 , 11/12/2021, 12/31/2020, Additional history exists Medical Devices Implanted Type Area Refractory Mixer Device Identifier Shelf Expiration Date Model / Serial / Lot [id number] pbone Canclls Crushed 30cc [[id number]] Implanted:Qty: 1 on 08/08/[address] [facility] Explanted:at [facility] (Quantity not on file) Spine Musculoskeletal Transplant 04/22/2011 [id number]# / [id number] / Kit Infuse Sm - [id number] Implanted:Qty: 1 on 08/08/[address] [facility] Spine SOFJULIA DANEK [id number]# / / [id number] Screw Post 7.5x45mm Std Trio Thoraco-Lmbr - [id number] Implanted:Qty: 2 on 08/08/[address] [facility] Spine HOWMEDICA [id number]# / / Screw Post 6.5x40mm Std Trio Thoraco-Lmbr - [id number] Implanted:Qty: 2 on 08/08/[address] [facility] Spine [facility] [id number]# / / Cnnctr Sm Offset - [id number] Implanted:Qty: 4 on 08/08/[address] [facility] Spine [facility] [id number]# / / Palmer Carley Rad 40mm 108mm Radius - [id number] Implanted:Qty: 2 on 08/08/[address] [facility] Spine [facility] [id number]# / / Procedures Procedure Name Priority Date/Time Associated Diagnosis Comments LIPID PANEL W REFLEX MEASURED LDL Routine 10/04/2023 10:00 AM CDT Mixed hyperlipidemia XR MAMMO JOANIE BILAT SCREEN Routine 09/14/2023 11:28 AM CDT Visit for screening mammogram COLONOSCOPY SCREENING Routine 02/13/2022 9:22 AM DUPLICATOR PUNCH SET UP OPERATOR Screening for colon cancer XR DXA BONE DENSITY 2 SITES AXIAL Routine 12/08/2021 10:48 AM CDT Menopause ANTI HCV Routine 04/15/2020 11:05 AM DUPLICATOR PUNCH SET UP OPERATOR Need for hepatitis C screening test from Last 3 Months or Most Recently Relevant to Health Maintenance Results * LIPID PANEL W REFLEX MEASURED LDL (10/04/2023 10:00 AM CDT) CHOLESTEROL,TOTAL 176 100 - 199 mg/dL 10/04/2023 6:08 PM CDT [facility] Comment: Cholesterol, Total Reference Ranges Desirable <200 mg/dL Borderline 200-239 mg/dL High >=240 mg/dL TRIGLYCERIDES 116 <150 mg/dL 10/04/2023 6:08 PM CDT [facility] HDL CHOLESTEROL 74 >40 mg/dL 6:08 PM CDT [facility] NON-HDL CHOLESTEROL 102 <145 mg/dl 10/04/2023 6:08 PM CDT [facility] CHOL/HDL RATIO 2.38 <4.50 10/04/2023 6:08 PM CDT [facility] LDL CHOLESTEROL 79 <=130 mg/dL 10/04/2023 6:08 PM CDT [facility] VLDL CHOLESTEROL 23 <=30 mg/dL 10/04/2023 6:08 PM CDT [facility] PROVIDER ORDERED STATUS RANDOM 10/04/2023 6:08 PM CDT [facility] Blood BLOOD SPECIMEN / Unknown Venipuncture / Unknown 10/04/2023 10:00 AM CDT 10/04/2023 10:02 AM CDT Renata Mensah MD CHEMISTRY Final R esult [facility] [address] [place] [address], [place] * XR MAMMO JOANIE BILAT SCREEN (09/14/2023 11:28 AM CDT) Anatomical Region Laterality Modality BREASTS, Breast Left, Breast Right Bilateral Mammography Impressions 09/20/2023 2:10 PM CDT There is no radiographic evidence for malignancy. Recommend annual mammograms. MAMMOGRAM ASSESSMENT: ACR 1 Negative PATIENTS: You will also receive a letter with your examination results in an easy to read format. If you have questions about your results, please contact your referring provider. Narrative 09/20/2023 2:10 PM CDT For Patients: As a result of the Cures Act, medical imaging exams and procedure reports are released immediately into your electronic medical record. You may view this report before your referring provider. If you have questions, please contact your health care provider. XR MAMMO JOANIE BILAT SCREEN [[id number]] CLINICAL HISTORY: This is an asymptomatic 68 y.o. patient. INDICATION FOR EXAM: Mammogram Screening. TECHNIQUE: CC & MLO views were obtained. This study was evaluated with the assistance of Computer-Aided Detection. Breast Tomosynthesis was used in interpretation. COMPARISON FILM: Yes 08/27/21 [facility] 04/17/20 [facility] FINDINGS: There are scattered areas of fibroglandular density. There are no dominant masses, suspicious micro calcifications or areas of architectural distortion. Renata Mensah MD MAMMO Final R esult * COLONOSCOPY (02/13/2022 8:45 AM DUPLICATOR PUNCH SET UP OPERATOR) 02/13/2022 8:45 AM DUPLICATOR PUNCH SET UP OPERATOR Narrative Transcriptions Dash Lin MD - 02/13/2022 10:10 AM CST Patient Name: Nancy Gooden Procedure Date: 02/13/2022 Gender: Female Date of : 1955 Admit Type: Outpatient Procedure: Colonoscopy Proceduralist: Dash Lin MD , Gissell Avendaño RN(Nurse), Viji Rangel (Nurse) Referring MD: Renata Mensah Indications/Pre-Op Diagnosis: Screening for colorectal malignant neoplasm, Last colonoscopy: July 2011 Medications: Fentanyl 150 micrograms IV, Midazolam 4 mgIV, The level of sedation administered wasmoderate Procedure Description: The patient had risks, benefits and alternatives explained to andgave informed consent. The patient had a stable cardiopulmonary status and judged an adequate candidate for conscious sedation. The endoscope [id number]-[id number] [id number] was passed through the anus andadvanced to the cecum, identified by appendiceal orifice and ileocecal valve.The colonoscopy was performed without difficulty. The patient toleratedthe procedure well. The quality of the bowel preparation was good. The ileocecal valve, appendiceal orifice, and rectum were photographed. Complications: No immediate complications. Estimated Blood Loss & Specimen: Estimated blood loss: none. Specimen collected - None Findings: The perianal and digital rectal examinations were normal. The entire examined colon appeared normal. Impressions/Post-Op Diagnosis: - The entire examined colon is normal. - No specimens collected. Recommendation: - Patient has a contact number available for emergencies. The signsand symptoms of potential delayed complications were discussed with the patient. Return to normal activities tomorrow. Written discharge instructions were provided to the patient. - Resume previous diet. - Continue present medications. - Repeat colonoscopy in 10 years for screening purposes. Moderate Sedation: A time out was performed before the procedure. Moderate (conscious) sedation was administered by the endoscopy nurse and supervised bythe endoscopist. The following parameters were monitored: oxygensaturation, heart rate, blood pressure, EKG, CO2, respiratory rate, adequacy of pulmonary ventilation and reponse to care. Please refer to the patient's medical record flowsheets and nursing notes for moderate sedation details. Total physician intraservice time was 13 minutes. Dash Lin MD 02/13/2022 10:10:27 AM This report has been signed electronically. Note Initiated On: 02/13/2022 8:45 AM Scope In: 9:54:07 AM Scope Withdrawal Time 0 hours 6 minutes 47 seconds Scope Out: 10:05:25 AM Dash Lin MD PROCEDURE ORD Final Res ult * (ABNORMAL) XR DXA BONE DENSITY 2 SITES AXIAL [12158.1] (12/08/2021 10:48 AM CDT) Anatomical Region Laterality Modality Spine, HIPS, HIPL, HIPR Other Impressions 12/09/2021 12:48 PM CDT Osteopenia. RECOMMENDATIONS: The National Osteoporosis Foundation recommends pharmacologic treatment for patients with T-scores of -2.5 or less, patients with prior history of fragility fractures, or patients with 10-year probability of greater than 3% at hips or greater than 20% of suffering major osteoporotic fractures. Recommend continued optimization of calcium and vitamin D intake through dietary means and/or supplementation and regular exercise. Repeat scan recommended in 3-5 years. Akilah Rahman PA-C [facility] 12/09/2021 Narrative 12/09/2021 12:48 PM CDT For Patients: Results are automatically released to your [email or web address] account once available, in compliance with federal regulations. This means that you may see your results before your provider has had a chance to review them. Please allow 2-3 business days for your provider to comment on the results. XR DXA Bone Mineral Density (BMD) EXAM LOCATION: [address] [address] PATIENT NAME: Nancy oGoden DATE OF : 1955 EXAM DATE: 12/08/2021 REQUESTING PROVIDER: Renata Mensah MD GENDER AT : female HEIGHT: 5' 3 (11/12/2021) WEIGHT: 144 lb 9.6 oz (11/12/2021) MENOPAUSAL STATUS: Postmenopausal RACE/ETHNICITY: White RISK FACTORS: Smoking (prior) and White Race CURRENT MEDICATION FOR BONE LOSS: NONE INDICATION: Menopause COMPARISON DATE(S): None DXA scans are compared to prior studies for a patient only when the two (or more) studies were performed on the same scanner. It is not possible to compare data generated on one scanner to data from another because there are not standards in DXA equipment. This applies even if the two scanners are made by the same cardiology technologist. PROCEDURE: Dual-energy x-ray absorptiometry performed with routine technique. Reporting is completed in the form of a T-score. The T-score represents the standard deviation from peak bone mass based on young healthy adult. A Z-score is used for diagnosis in premenopausal women, and for men under the age of 50. FINDINGS: RESULT LUMBAR SPINE L1 - L2 BMD: 0.967 g/cm2 T-Score: - 1.8 Z-Score: - 0.2 Change from prior: None RESULTS FEMUR Left femoral neck BMD: 0.789 g/cm2 T-Score: - 1.8 Z-Score: - 0.3 Change from prior: None Right femoral neck BMD: 0.766 g/cm2 T-Score: - 2.0 Z-Score: - 0.5 Change from prior: None Left hip BMD: 0.815 g/cm2 T-Score: - 1.5 Z-Score: - 0.3 Change from prior: None Right hip BMD: 0.747 g/cm2 T-Score: - 2.1 Z-Score: - 0.8 Change from prior: None WHO criteria: Normal: T-score at or above -1 SD Osteopenia: T-score between -1.1 and -2.4 SD Osteoporosis: T-score at or below -2.5 SD FRAX RISK CALCULATION (USED FOR OSTEOPENIA ONLY): 10-year probability of major osteoporotic fracture: 10.9%. 10-year probability of hip fracture: 1.7%. us Renata Mensah MD DEXA Final R esult * ANTI HCV (04/15/2020 11:05 AM DUPLICATOR PUNCH SET UP OPERATOR) HEPATITIS C ANTIBODY Non-React abram Non-React abram 04/15/2020 6:08 PM DUPLICATOR PUNCH SET UP OPERATOR [facility] Comment:Antibodies to HCV no t detected; does not exclude the possibility of exposure to HCV. Blood BLOOD SPECIMEN / Unknown Venipuncture / Unknown 04/15/2020 11:05 AM DUPLICATOR PUNCH SET UP OPERATOR 04/15/2020 11:05 AM DUPLICATOR PUNCH SET UP OPERATOR us Renata Mensah MD SEND OUTS Final R esult [facility] [address] [place] [address], [place] from Last 3 Months or Most Recently Relevant to Health Maintenance Insurance [employer] [place] [employer] [place] ONLY Advance Directives * Full Code (Latest Code Status on File) Date Activated Date Inactivated Comments 08/08/2008 6:56 PM 08/13/2008 11:58 AM * Full Code Date Activated Date Inactivated Comments 08/08/2008 7:29 AM 08/08/2008 6:56 PM Care Teams Agricultural Sales Representative Relationship Specialty Start Date End Date Renata Mensah MD [address] [place] [address] PCP - General Family Practice 03/07/10 Heather Cartwright MD [address] [place] [address] [address] Colorectal Surgery Surgery - Colon and Rectal 06/29/11 Dash Lin MD [address] [address] [address] Gastroenterology Gastroenterology 06/29/11
[2024-04-13 14:28] VITALS: BP 136/82; PULSE 64; RESP 18; O2SAT 99; BMI 24.8
--- NOTE | 2024-04-13 15:05 | ED.GENADULT ---
HPI - General Adult General Chief complaint: Hip Injury/Pain Stated complaint: spontaneous L hip pain with vertigo Time Seen by Provider: 04/13/24 14:10 History of Present Illness HPI narrative: This 69-year-old female comes in reporting rather sudden onset of pain last evening in her left upper buttock and low back. She states that she was standing in the kitchen and twisted a bit and had rather sudden onset of pain. The pain does not radiate down her leg. She did not have an injury event. She needed to get up in the night to use the bathroom and had a lot of difficulty doing so because of the pain. She is able to walk in here today and bear weight. She does have a history of a cyst in her back that was treated and her pain went away. She states that that pain is a different thing than what she is experiencing now. Related Data Home Medications ?Medication ?Instructions ?Recorded ?Confirmed lisinopril 10 mg tablet 10 mg PO DAILY 12/03/21 04/13/24 sertraline 25 mg tablet 12.5 mg PO Q24H 12/03/21 04/13/24 calcium carbonate See Rx Instructions PO .COMPLEX 03/07/22 04/13/24 rosuvastatin 5 mg tablet mg 03/07/22 08/04/22 loratadine 10 mg tablet (Claritin) 10 mg PO QDAY 08/04/22 04/13/24 vxwbnhnheyzo-Ck-pppx-minerals 18 tab PO 08/04/22 08/04/22 mg-0.4 mg tablet Previous Rx's ?Medication ?Instructions ?Recorded cyclobenzaprine 10 mg tablet 10 mg PO TID #15 tabs 04/13/24 hydrocodone 5 mg-acetaminophen 325 1 tab PO Q4-6H PRN pain #15 tabs 04/13/24 mg tablet ketorolac 10 mg tablet 10 mg PO Q8H 5 days #15 tabs 04/13/24 methylprednisolone 4 mg tablets in See Rx Instructions PO .COMPLEX 04/13/24 a dose pack (Medrol (Calin)) #21 ea Allergies Allergy/AdvReac Type Severity Reaction Status Date / Time No Known Drug Allergies Allergy Verified 04/13/24 14:35 Review of Systems Status of ROS: Reports: 10 or more systems reviewed and unremarkable except as noted in History and below Narrative: Constitutional: No fevers, no weight gain or loss. Eyes: No discharge. No vision changes. HENT: No congestion, no sore throat, no ear pain. Cardiovascular: No chest pain, no palpitations. Respiratory: No shortness of breath, no wheezes, no cough. Gastrointestinal: No abdominal pain, no vomiting, no diarrhea. Genitourinary: No dysuria, no hematuria. Musculoskeletal: Pain in the left upper buttock. Skin: No rashes, no pruritis. Neurological: No dizziness, weakness, sensory change, speech change. Endo/Heme/Allergies: No bruising or bleeding. No polydipsia. Pysch: no suicidality, no anxiety, no insomnia. All other systems reviewed and are negative. [facility] Medical History (Updated 04/13/24 @ 15:11 by Rashard To MD) No significant past medical history Surgical History (Updated 08/04/22 @ 08:37 by Ivon Rao ~ [facility], [facility]) History of back surgery (~2007) ?Z98.890 - Other specified postprocedural states (ICD-10) Social History Smoking Status: Former smoker Do you use any of these nicotine containing products: None Second hand tobacco smoke exposure: No How often do you have a drink containing alcohol: never How often do you have six or more drinks on one occasion: Never AUDIT-C Alcohol total score: 0 Non-prescribed substance use: denies use service: No Exam Narrative: Exam Narrative: Constitutional: Well-developed, well-nourished, no acute distress. HEENT: Normocephalic, atraumatic. Neck: Normal range of motion. Nontender. Supple. Heart: Regular. No murmurs. Normal rate. Intact distal pulses. Lungs: Clear to auscultation. No chest discomfort. No wheezes, rhonchi, or rales. Abdomen: Normal bowel sounds. Nontender. No rebound tenderness. Genitalia: Deferred. Back: No midline tenderness. Normal range of motion. Diffuse pain in the left upper buttock. Extremities: Normal range of motion. No injury. Use Skin: Intact. No rash. Warm. No erythema or pallor. Neurologic: No altered sensation. No weakness. Alert and oriented. Psychiatric: No suicidality. No anxiety or depression. No insomnia. Nursing notes and vitals signs are reviewed. Const: Vital Signs, click to edit/add: Vital Signs - 24 hr 04/13/24 14:28 Pulse Rate [Right Pulse Oximeter] 64 Respiratory Rate 18 Blood Pressure [Ri ght Upper Arm] 136/82 Pulse Oximetry 99 Oxygen Delivery Me thod Room Air Course Vital Signs Vital signs: Initial Vital Signs Pulse Rate 64 04/13/24 14:28 Pulse Rhythm Regular 04/13/24 14:28 Pulse Strength 3+ Normal 04/13/24 14:28 Respiratory Rate 18 04/13/24 14:28 Blood Pressure 136/82 04/13/24 14:28 Blood Pressure Mean 100 04/13/24 14:28 Blood Pressure Position Sitting 04/13/24 14:28 Pulse Oximetry 99 04/13/24 14:28 Oxygen Delivery Method Room Air 04/13/24 14:28 Vital Signs Pulse Rate 64 04/13/24 14:28 Respiratory Rate 18 04/13/24 14:28 Blood Pressure 136/82 04/13/24 14:28 Pulse Oximetry 99 04/13/24 14:28 Oxygen Delivery Method Room Air 04/13/24 14:28 Pulse Rate 64 04/13/24 14:28 Respiratory Rate 18 04/13/24 14:28 Blood Pressure 136/82 04/13/24 14:28 Pulse Oximetry 99 04/13/24 14:28 Oxygen Delivery Method Room Air 04/13/24 14:28 Medical Decision Making MDM Narrative Medical decision making narrative: This patient comes in with sudden onset of pain as described above. There was not a injury event or mechanism of injury that requires imaging at this time. I did offer CT or x-ray imaging which she declined for now. I did recommend that she follow-up with the spine clinic. I did provide prescriptions for Toradol, Epps, Flexeril, and Medrol Dosepak. Discharge Plan Discharge Clinical Impression: Low back pain Patient Disposition: Home, Self-Care Condition: Stable Additional Instructions: Take medication as needed and directed. Follow up with primary physician or spine clinic. Spine clinic can be contacted by dialing [phone]. Prescriptions: New cyclobenzaprine 10 mg tablet 10 mg PO TID Qty: 15 0RF hydrocodone-acetaminophen 5-325 mg tablet 1 tab PO Q4-6H PRN (Reason: pain) Qty: 15 0RF ketorolac 10 mg tablet 10 mg PO Q8H 5 Days Qty: 15 0RF methylprednisolone [Medrol (Calin)] 4 mg tablets,dose pack See Rx Instructions .ROUTE .COMPLEX Qty: 21 0RF Rx Instructions: orally per package directions No Action hjvimgedpakz-Ny-utos-minerals 18-0.4 mg tablet PO loratadine [Claritin] 10 mg tablet 10 mg PO QDAY lisinopril 10 mg tablet 10 mg PO DAILY Patient Comments: TAKE ONE TABLET BY MOUTH ONE TIME DAILY sertraline 25 mg tablet 12.5 mg PO Q24H Patient Comments: Take 1 Tablet (25 mg) by mouth every morning rosuvastatin 5 mg tablet Patient Comments: TAKE ONE TABLET BY MOUTH AT BEDTIME calcium carbonate [Calcium 500] See Rx Instructions PO .COMPLEX Rx Instructions: orally; Follow Up/Referrals: Renata Mensah MD [Primary Care Provider] - Stand Alone Forms: [facility] Info Inst[facility]
--- OUTSIDE RECORDS SUMMARY | 2024-04-13 15:32 | XMS_ITS | Clinical Summary ---
Author Organization [facility] [facility] Address [place], [place] [address] Care Team Providers Care Financial Health Counselor Name Role Phone Renata Mensah MD Primary Care Provider Heather Cartwright MD Unavailable [phone] GadekDash MD Unavailable [phone] Allergies No known active allergies Medications loratadine [...] Department Care Team Description 03/13/2024 2:30 PM CENTRAL SUPPLY WORKER Office Visit [facility] [address] [place] [address] Shanthi Warren PA URHerbert 03/13/2024 Travel 03/13/2024 Telephone [facility] [address] [place] [address] Renata Mensah MD Medication Management (ANTIBIOTIC ) from Last 3 Months Immunizations Name Administration Dates Next Due AMB Influenza, IIV3 (Age >=3 years)(Flu Clinic Only) 01/10/2008 AMB Influenza, IIV4 PF (=>6 mos Flulaval,Fluzone Fluarix)(Flu Clinic Only) 11/28/2019 COVID-19 VACCINE SPIKEVAX (M ODERNA 50MCG/0.5ML) 12YO+ PFS 12/01/2023 COVID-19 vaccine (Weimi-Bio NTech 30mcg/0.3mL) 12YO+ BIVALENT PF, MDV 03/13/2022 COVID-19 vaccine (Weimi-Bio NTech 30mcg/0.3mL) PF, MDV 02/17/2021,07/02/2020,06/11/2020 Influenza, High-dose [...] on file Legal Sex Female 5:18 AM CENTRAL SUPPLY WORKER Gender Identity Not on file Sexual Orientation Not on file Obstetrics History Last Filed Vital Signs Vital Sign Reading Time Taken Comments Blood Pressure 127/84 03/13/2024 1:35 PM CENTRAL SUPPLY WORKER Pulse 78 03/13/2024 1:35 PM CENTRAL SUPPLY WORKER Temperature 36.8 C (98.2 F) 03/13/2024 1:35 PM CENTRAL SUPPLY WORKER Respiratory Rate 18 02/24/2021 10:46 AM CENTRAL SUPPLY WORKER Oxygen Saturation 100% 03/13/2024 1:35 PM CENTRAL SUPPLY WORKER Inhaled Oxygen Concentration - - Weight 63.5 kg (140 lb) 03/13/2024 1:35 PM CENTRAL SUPPLY WORKER Height 158.8 cm (5' 2.5) 12/01/2023 9:55 [...] history exists Medical Devices Implanted Type Area Certified Alcohol Counselor Device Identifier Shelf Expiration Date Model / Serial / Lot [id number] pbone Canclls Crushed 30cc [[id number]] Implanted:Qty: 1 on 08/08/2008 at [facility] Explanted:at [facility] (Quantity not on file) Spine Musculoskeletal Transplant 04/22/2011 [id number]# / [id number] / Kit Infuse Sm - [id number] Implanted:Qty: 1 on 08/08/2008 at [facility] Spine SOFJULIA DANEK [id number]# / / [id number] Screw Post 7.5x45mm Std Trio Thoraco-Lmbr - [id number] Implanted:Qty: 2 on 08/08/2008 at [facility] Spine [employer]MEDICA [id number]# / / Screw Post 6.5x40mm Std Trio Thoraco-Lmbr - [id number] Implanted:Qty: 2 on 08/08/2008 at [facility] [id number]# / / Cnnctr Sm Offset - [id number] Implanted:Qty: 4 on 08/08/2008 at [facility] [id number]# / / Palmer Carley Rad 40mm 108mm Radius - [id number] Implanted:Qty: 2 on 08/08/2008 at [facility] [id number]# / / Procedures Procedure Name Priority Date/Time Associated Diagnosis Comments LIPID PANEL W REFLEX MEASURED LDL Routine 10/04/2023 10:00 AM CDT Mixed hyperlipidemia XR MAMMO JOANIE BILAT SCREEN Routine 09/14/2023 11:28 AM CDT Visit for screening mammogram COLONOSCOPY SCREENING Routine 02/13/2022 9:22 AM CENTRAL SUPPLY WORKER Screening for colon cancer XR DXA BONE DENSITY 2 SITES AXIAL Routine 12/08/2021 10:48 AM CDT Menopause ANTI HCV Routine 04/15/2020 11:05 AM CENTRAL SUPPLY WORKER Need for hepatitis C screening test from Last 3 Months or Most Recently Relevant to Health Maintenance Results * LIPID PANEL W REFLEX MEASURED LDL (10/04/2023 10:00 AM CDT) CHOLESTEROL,TOTAL 176 100 - 199 mg/dL 10/04/2023 6:08 PM CDT [facility] [employer] LABORAT[facility] TRAL LABORATORY Comment: Cholesterol, Total Reference Ranges Desirable <200 mg/dL Borderline 200-239 mg/dL High >=240 mg/dL TRIGLYCERIDES 116 <150 mg/dL 10/04/2023 6:08 PM CDT [facility] [employer] LABORATORY-[facility] TRAL [facility] HDL CHOLESTEROL 74 >40 mg/dL 6:08 PM CDT [facility] TRAL LABORATORY NON-HDL CHOLESTEROL 102 <145 mg/dl 10/04/2023 6:08 PM CDT [facility] TRAL LABORATORY CHOL/HDL RATIO 2.38 <4.50 10/04/2023 6:08 PM CDT [facility] TRAL LABORATORY LDL CHOLESTEROL 79 <=130 mg/dL 10/04/2023 6:08 PM CDT [facility] [employer] TRAL LABORATORY VLDL CHOLESTEROL 23 <=30 mg/dL 10/04/2023 6:08 PM CDT [facility] TRAL LABORATORY PROVIDER ORDERED STATUS RANDOM 10/04/2023 6:08 PM CDT [facility] Blood BLOOD SPECIMEN / Unknown Venipuncture / Unknown 10/04/2023 10:00 AM CDT 10/04/2023 10:02 AM CDT Renata Mensah MD CHEMISTRY Final R esult [facility]AL [facility] [address] [place] [address], [place] * XR MAMMO JOANIE BILAT SCREEN [...] care provider. XR MAMMO JOANIE BILAT SCREEN [[id number]] CLINICAL HISTORY: This is an asymptomatic 68 y.o. patient. INDICATION FOR EXAM: Mammogram Screening. TECHNIQUE: CC & MLO views were obtained. This study was evaluated with the assistance of Computer-Aided Detection. Breast Tomosynthesis was used in interpretation. COMPARISON FILM: Yes 08/27/21 [facility] [employer] 04/17/20 [facility] FINDINGS: There are scattered areas of fibroglandular density. There are no dominant masses, suspicious micro calcifications or areas of architectural distortion. Renata Mensah MD MAMMO Final R esult * COLONOSCOPY (02/13/2022 8:45 AM CENTRAL SUPPLY WORKER) 02/13/2022 8:45 AM CENTRAL SUPPLY WORKER Narrative Transcriptions Dash Lin MD - 02/13/2022 [...] candidate for conscious sedation. The endoscope [id number] was passed through the anus andadvanced to [...] XR DXA BONE DENSITY 2 SITES AXIAL [58752.1] (12/08/2021 10:48 AM CDT) Anatomical Region Laterality [...] recommended in 3-5 years. Akilah Rahman PA-C [facility] 12/09/2021 Narrative 12/09/2021 12:48 PM CDT For Patients: Results are automatically released to your [facility] [employer]) account once available, in compliance with federal regulations. This means that you may see your results before your provider has had a chance to review them. Please allow 2-3 business days for your provider to comment on the results. XR DXA Bone Mineral Density (BMD) EXAM LOCATION: [address] [address] PATIENT NAME: Nancy Gooden DATE OF : 1955 EXAM DATE: 12/08/2021 [...] two scanners are made by the same extras casting director. PROCEDURE: Dual-energy x-ray absorptiometry performed with routine [...] esult * ANTI HCV (04/15/2020 11:05 AM CENTRAL SUPPLY WORKER) HEPATITIS C ANTIBODY Non-React abram Non-React abram 04/15/2020 6:08 PM CENTRAL SUPPLY WORKER [facility] [employer] LABORATORY-J[facility]IOR TRAL LABORATORY Comment:Antibodies to HCV no t detected; does not exclude the possibility of exposure to HCV. Blood BLOOD SPECIMEN / Unknown Venipuncture / Unknown 04/15/2020 11:05 AM CENTRAL SUPPLY WORKER 04/15/2020 11:05 AM CENTRAL SUPPLY WORKER us Renata Mensah MD SEND OUTS Final R esult [facility]AT[facility] [address] [place] [address], [place] from Last 3 Months or Most Recently Relevant to Health Maintenance Insurance BLUE CROSS MATCH-E-BE-NASH-SHE-WISH BAND BLUE MR PB ONLY Advance Directives * Full Code (Latest Code Status on File) Date Activated Date Inactivated Comments 08/08/2008 6:56 PM 08/13/2008 11:58 AM * Full Code Date Activated Date Inactivated Comments 08/08/2008 7:29 AM 08/08/2008 6:56 PM Care Teams Financial Health Counselor Relationship Specialty Start Date End Date Renata Mensah MD [address] [place] [address] PCP - General Family Practice 03/07/10 Heather Cartwright MD [address] [address] Colorectal Surgery Surgery - Colon and Rectal 06/29/11 Dash Lin MD [address] [address] Gastroenterology Gastroenterology 06/29/11
--- OUTSIDE RECORDS SUMMARY | 2024-04-13 15:32 | XMS_ITS | Clinical Summary ---
Author Organization [employer] Address [address] [address] Care Team Providers Care Plaque Maker Name Role Phone Clinician, Not Found MD Primary Care Provider Un available Source Comments You are receiving this document as you are listed as the primary care provider,follow-up provider, or the patient has been referred to you for consultation.This is in compliance with the Medicare and[facility] EHR Incentive Program,which states Providers who transition their patient to another setting of careor provider of care or refers their patient to another provider of care shouldprovide summary care record for each transition of care or referral. [employer] Allergies No known active allergies Medications Medication [...] 65.8 kg (145 lb) 03/19/2020 10:07 AM EDUCATION OFFICER Height 160 cm (5' 3) 03/19/2020 10:07 AM EDUCATION OFFICER Body Mass Index 25.69 03/19/2020 10:07 AM EDUCATION OFFICER Plan of Treatment Health Maintenance Due [...] age to complete this topic Care Teams Plaque Maker Relationship Specialty Start Date End Date Clinician, Not Found, [place] [address] PCP - General 03/19/20
--- OUTSIDE RECORDS SUMMARY | 2024-04-13 15:32 | XMS_ITS | Continuity of Care Document ---
Author Organization [facility] Address [address] [place] [address] Phone Care Team Providers Care Area Counselor Name Role Phone Eckroth Blas BRITO Unavailable [...] Copied on Encounter [facility], [address], [place], [place], [id number], [place] tel:[phone] [facility] No Information 4 Edel Odonnell. [address], [place], [place], [id number] , [place]. tel:[phone] Office/Outpat ient Visit,Est, Mod [facility], [address], [place], [place], [id number], [place] tel:[phone] [facility] Spinal stenosis, lumbar region with neurogenic claudication 4 Krista Oro. [facility] [place], [address] [place] [address] [address], [place], [place], [id number] , [place]. tel:[phone] Referring Provider: Shorty Velasco, [facility] [address], [place], [address] . tel:[phone] Office/Outpat ient Visit,New, Mod [facility], [address], [place], [place], [address], [place] tel:[phone] [facility] Spinal stenosis, lumbar region with neurogenic claudicationS pondylolisthe sis, lumbar region 4 Edel Odonnell. [address] [place] [address] [address], [place], [place], [address] , [place]. [phone] Referring Provider: Blas Balbuena, [address], [place], [address] . tel:[phone] Office/outpat ient visit,est, mod Z [facility] [place], [address], [place], [address], [place] tel:[phone] [employer] No Information 0 7-200 9 Mehbod Amir. [facility], [address], [place], [place], [address] , [place]. tel:[phone] Referring Provider: Mariza Guzmán, [facility] [employer] [address], [place], [address] . tel:[phone] Z [facility], [address], [place], [place], [facility], [place] tel:[phone] [employer] No Information 2 4-200 9 Mehbod Amir. [facility], [address], [place], [place], [address] , [place]. tel:[phone] Referring Provider: Mariza Guzmán, [facility] [employer] [facility], [place], [address] . tel:[phone] Z [facility], [address], [place], [address], [place] tel:[phone] [employer] No Information 3-200 9 Mehbod Amir. [facility], [address], [place], [place], [id number] , [place]. tel:[phone] Referring Provider: Mariza Guzmán, [facility] [address], [place], [address] . tel:[phone] Z [facility], [address], [place], [address], [place] tel:[phone] [facility] No Information 0 3-200 9 Mehbod Amir. [facility], [address], [place], [place], [address] , [place]. tel:[phone] Referring Provider: Mariza Guzmán, [facility] [address], [place], [address] . tel:[phone] Office/outpat ient visit,est, low Z [facility], [address] [place], [place] [address], [place], [address], [place] tel:[phone] [employer] No Information 9 Mehbod Amir. [facility] [place], [address] [place] [address] [address], [place], [place], [id number] , [place]. [phone] Referring Provider: Mariza Guzmán, [place] [address], [place], [address] . tel:[phone] Office consultation, moderate Z [facility] [place], [address] [place], [place] [address], [place], [place], [facility], [place] tel:[phone] [employer] No Information 9 Mehbod Amir. [facility] [place], [address] [place] [address] [address], [place], [place], [id number] , [place]. [phone] Referring Provider: Mariza Guzmán, [place] [address], [place], [address] . tel:[phone] Family History Family Member Type Diagnosis Age At Onset No Information Payers Payer name Insurance type Covered republican ID Alex vasquez(s) [facility] [id number] Medicare [facility] [id number] Social History Type Description Quantity Date Captured Comments Sex Female Smoking Status No Information Chief Complaint And Reason For Visit No Information Reason For Referral Reason For Referral No Information Plan Of Treatment Date Type Action Status Appointment Nancy Gooden BOOKED Appointment Nancy Gooden BOOKED Future Order: Radiology Order AP -Iqk-Hiad-Gmy Lum (APLatFlExL), Ordered on: Ordered History Of Present Illness Encounter Date Complaint History Of Prese nt Illness No Information Functional Status Date Functional Assessmen t No Information Instructions Date Instruction Additional Infor mation No Information Assessments Type Assessment Date No Information Patient Care Teams Name Effective Dates (start - stop) Status Members No Information
== END 2024-04-13 15:43 | disposition home or self-care (01) ==
PROVIDERS: Emergency Provider Emergency Medicine Emergency Medical Services; PCP Family Medicine
DX: M54.50 Low back pain, unspecified (principal); X50.1XXA Overexertion from prolonged static or awkward postures, initial encounter
CPT/HCPCS: 99283; 99284

== ENCOUNTER 2024-11-23 14:58 | Emergency (ER) | payer MEDICARE, BC, SELFPAY ==
--- OUTSIDE RECORDS SUMMARY | 2024-11-23 15:00 | XMS_ITS | Clinical Summary ---
Author Organization [facility] Address [address] [place] [id number] Care Team Providers Care Neuropsychiatrist Name Role Phone Renata Mensah MD Primary Care Provider Heather Cartwright MD Unavailable [phone] GadekDash MD Unavailable [phone] Allergies No known active allergies Medications loratadine (CLARITIN) 10 mg tablet Take 1 tablet by mouth once daily. 0 06/29/19 12 Active multivitamin (CHEWABLE MULTI VITAMIN) chew Take 1 tablet by mouth once daily. 0 06/03/19 17 Active calcium carbonate/vitamin D3 (CALCIUM 600 + D(3) ORAL) Take by mouth. Active hydrocortisone (ANUSOL-HC) 2.5 % rectal creamIndications:H emorrhoids, external Apply topically to affected area(s) two times daily. 28 g 5 11/09/19 25 Active lisinopriL (PRINIVIL; ZESTRIL) 10 mg tabletIndications: HTN (hypertension) Take 1 Tablet (10 mg) by mouth once daily. 90 Tablet 3 11/09/19 25 Active rosuvastatin (CRESTOR) 5 mg tabletIndications: Mixed hyperlipidemia Take 1 Tablet (5 mg) by mouth at bedtime. 90 Tablet 3 11/09/19 25 Active sertraline (ZOLOFT) 50 mg tabletIndications: Anxiety Take 1 Tablet (50 mg) by mouth once daily in the morning. 90 Tablet 3 11/09/19 25 Active SUMAtriptan (IMITREX) 25 mg tabletIndications: Migraine syndrome Take 1 Tablet (25 mg) by mouth every 2 hours if needed for Migraine. Give at minimum 2hrs apart. Max Dose: 200mg per 24hrs. 10 Tablet 3 11/09/19 25 Active SUMAtriptan (IMITREX) 25 mg tabletIndications: Migraine syndrome Take 1 Tablet (25 mg) by mouth every 2 hours if needed for Migraine. Give at minimum 2hrs apart. Max Dose: 200mg per 24hrs. 10 Tablet 3 11/13/19 22 025 Discontin ued(Reord er (E-cancel not sent)) hydrocortisone (ANUSOL-HC) 2.5 % rectal creamIndications:H emorrhoids, external Apply topically to affected area(s) two times daily. 28 g 5 10/04/19 24 025 Discontin ued(Reord er (E-cancel not sent)) lisinopriL (PRINIVIL; ZESTRIL) 10 mg tabletIndications: HTN (hypertension) Take 1 Tablet (10 mg) by mouth once daily. 90 Tablet 3 10/04/19 24 025 Discontin ued(Reord er (E-cancel not sent)) rosuvastatin (CRESTOR) 5 mg tabletIndications: Mixed hyperlipidemia Take 1 Tablet (5 mg) by mouth at bedtime. 90 Tablet 3 10/04/19 24 025 Discontin ued(Reord er (E-cancel not sent)) sertraline (ZOLOFT) 50 mg tabletIndications: Anxiety Take 1 Tablet (50 mg) by mouth once daily in the morning. 90 Tablet 10/04/19 25 025 Discontin ued(Reord er (E-cancel not sent)) Active Problems Problem Noted Date Diagnosed Date [...] Encounters Date Type Department Care Team Description 11/08/2024 1:10 PM CDT Office Visit [facility] [address] [place] [address] Renata Mensah MD Medication Management 11/08/2024 Travel 10/03/[address] [facility] [address] [place] [address] [address] Renata Mensah MD Refill Request (Sertraline) from Last 3 Months Immunizations Immunization Administration Dates Next Due AMB Influenza, IIV3 (Age >=3 years)(Flu Clinic Only) 01/10/2008 AMB Influenza, IIV4 PF (=>6 mos Flulaval,Fluzone Fluarix)(Flu Clinic Only) 11/28/2019 COVID-19 VACCINE SPIKEVAX (M ODERNA 50MCG/0.5ML) 12YO+ PFS 12/01/2023 COVID-19 vaccine ([employer] NTech 30mcg/0.3mL) 12YO+ BIVALENT PF, MDV 03/13/2022 COVID-19 vaccine ([employer] 30mcg/0.3mL) PF, MDV 02/17/2021,07/02/2020,06/11/2020 Influenza, High-dose [...] fibrillation Mother Coronary artery disease Mother Margaret narbrian Stents x1 Good Health Mother Hearing loss Mother Heart Disease Mother Heart attack Mother Other Mother Pacemaker Atrial fibrillation Sister Astrid dumont Cancer-breast No Family History Relation Name Status [...] or isolated from those around you? 0 11/08/2024 Financial Resource Strain Answer Date R ecorded Difficulty of Paying Living Expenses 3 11/08/2024 Difficulty of Paying Living Expenses Not on file 11/08/2024 Food Insecurity Answer Date Recorded Do you worry your food will run out before you are able to buy more? 1 11/08/2024 Transportation Needs Answer Date Record ed Does lack of transportation keep you from medica l appointments? 1 11/08/2024 Does lack of transportation keep you from work, meetings or getting things that you need? 1 11/08/2024 Housing Stability Answer Date Recorded What is your housing situation today? 1 11/08/2024 Utilities Answer Date Recorded Do you have trouble paying f or utilities (for example, heat, electricity, water, phone)? 1 11/08/2024 Comments No Sex and Gender Information Value Date Recorded Sex Assigned at Not on file Legal Sex Female 5:18 AM STRAND GALVANIZER Gender Identity Not on file Sexual Orientation Not on file Obstetrics History Last Filed Vital Signs Vital Sign Reading Time Taken Comments Blood Pressure 125/71 11/08/2024 1:11 PM CDT Pulse 51 11/08/2024 1:11 PM CDT Temperature 36.8 C (98.2 F) 03/13/2024 1:35 PM STRAND GALVANIZER Respiratory Rate 18 02/24/2021 10:46 AM STRAND GALVANIZER Oxygen Saturation 100% 11/08/2024 1:11 PM CDT Inhaled Oxygen Concentration - - Weight 64 kg (141 lb) 11/08/2024 1:11 PM CDT Height 160 cm (5' 3) 11/08/2024 1:11 PM CDT Body Mass Index 24.98 11/08/2024 1:11 PM CDT Plan of Treatment Upcoming Encounters Date Type Department Care Team (Late st Contact Info) Description 12/07/2024 10:00 AM CDT Ancillary Procedure [facility] [address] [place] [address] 12/07/2024 10:55 AM CDT Office Visit [facility] [address] [place] [address] Renata Mensah MD [address] [place] [address] Health Maintenance Due Date Last Done Comments Mammogram for age 45-75 09/13/2024 09/14/19, 08/27/2021, 04/17/2020, Additional history exists COVID-19 vaccine series ( season) 2024 12/01/2023, 01/21/2023, 03/13/2022, Additional history exists Influenza Vaccine (#1) 2024 , 11/12/2021, 12/31/2020, Additional history exists Depression screening for age 12+ 11/30/2024 12/01/2023, 10/04/2023, 10/02/2022, Additional history exists Medicare Wellness for age 65+ 12/01/2024 12/01/2023, 11/12/2021 BMI (ht and wt on same day) for age 18+ 11/08/2025 11/08/2024, 12/01/2023, 10/04/2023, Additional history exists Tetanus booster 12/05/2028 12/05/2018, 05/08, 06/29/1992 Lipids for age 45-75 11/08/2029 11/08/2024, 10/04/2023, 10/01/2022, Additional history exists RSV vaccine for adults or (1 - 1-dose 75+ series) 02/20/2031 Colonoscopy through age 75 02/14/203202/13, 02/13/2022, 07/17/2011, Additional history exists Zoster (shingles) series for age 50+ Completed 05/16/2019, 12/21/2018, 09/28/2016 Hepatitis C screening for age 18-79 Completed 04/15/2020 Pneumococcal series for age 50+ Completed 11/12/2021 DEXA/DXA scan for age 65+ Completed 12/08/2021 Hepatitis B series for 19+ Aged Out N o longer eligible based on patient's age to complete this topic Medical Devices Implanted Type Area Stud Setter Device Identifier Shelf Expiration Date Model / Serial / Lot [id number] pbone Canclls Crushed 30cc [[id number]] Implanted:Qty: 1 on 08/08/[address] [facility] Explanted:at [facility] (Quantity not on file) [employer] 04/22/2011 [id number]# / [id number] / Kit Infuse Sm - [id number] Implanted:Qty: 1 on 08/08/[address] [facility] Spine [employer] [id number]# / / [id number] Screw Post 7.5x45mm Std Trio Thoraco-Lmbr - [id number] Implanted:Qty: 2 on 08/08/[address] [facility] Spine [employer] [id number]# / / Screw Post 6.5x40mm Std Trio Thoraco-Lmbr - [id number] Implanted:Qty: 2 on 08/08/[address] [facility] [id number]# / / Cnnctr Sm Offset - [id number] Implanted:Qty: 4 on 08/08/[address] [facility] [id number] / / Palmer Carley Rad 40mm 108mm Radius - [id number] Implanted:Qty: 2 on 08/08/[address] [facility] [id number]# / / Procedures Procedure Name Priority Date/Time Associated Diagnosis Comments LIPID PANEL W REFLEX MEASURED LDL Routine 11/08/2024 1:50 PM CDT Mixed hyperlipidemia BASIC METABOLIC PANEL Routine 11/08/2024 1:50 PM CDT HTN (hypertension) XR MAMMO JONAIE BILAT SCREEN Routine 09/14/2023 11:28 AM CDT Visit for screening mammogram COLONOSCOPY SCREENING Routine 02/13/2022 9:22 AM STRAND GALVANIZER Screening for colon cancer XR DXA BONE DENSITY 2 SITES AXIAL Routine 12/08/2021 10:48 AM CDT Menopause ANTI HCV Routine 04/15/2020 11:05 AM STRAND GALVANIZER Need for hepatitis C screening test from Last 3 Months or Most Recently Relevant to Health Maintenance Results * LIPID PANEL W REFLEX MEASURED LDL (11/08/2024 1:50 PM CDT) CHOLESTEROL, TOTAL 156 <200 mg/dL 11/09/2024 4:17 AM CDT [facility] TRIGLYCERIDES 90 <150 mg/dL 11/09/2024 4:17 AM CDT [facility] HDL CHOLESTEROL 68 > OR = 50 mg/dL 11/09/2024 4:17 AM CDT [facility] NON HDL CHOLESTEROL 88 <130 mg/dL (calc) 11/09/2024 4:17 AM [employer] [facility] Comment: For patients with diabetes plus 1 major ASCVD risk factor, treating to a non-HDL-C goal of <100 mg/dL (LDL-C of <70 mg/dL) is considered a therapeutic option. CHOL/HDLC RATIO 2.3 <5.0 (calc) 11/09/2024 4:17 AM CDT [facility] LDL-CHOLESTEROL 71 mg/dL (calc) 11/09/2024 4:17 AM [employer] [facility] Comment: Reference range: <100 Desirable range <100 mg/dL for primary prevention; <70 mg/dL for patients with CHD or diabetic patients with > or = 2 CHD risk factors. LDL-C is now calculated using the Rhianna calculation, which is a validated novel method providing better accuracy than the Friedewald equation in the estimation of LDL-C. Dash BRADFORD et al. JAIMIE. 2013;310(19): 3559-1916 (http://education.Medicalodges/faq/FSS003) Blood BLOOD SPECIMEN / Unknown [facility] / Unknown 11/08/2024 1:50 PM CDT 11/08/2024 1:51 PM CDT Renata Mensah MD CHEMISTRY Final R esult [facility] [address] [place] [address], * BASIC METABOLIC PANEL (11/08/2024 1:50 PM CDT) SODIUM 141 135 - 146 mmol/L 11/09/2024 4:17 AM CDT [facility] POTASSIUM 4.7 3.5 - 5.3 mmol/L 11/09/2024 4:17 AM CDT [facility] CARBON DIOXIDE 29 20 - 32 mmol/L 11/09/2024 4:17 AM CDT [facility] GLUCOSE 84 65 - 99 mg/dL 11/09/2024 4:17 AM CDT [facility] Comment: Fasting reference interval CALCIUM 10.0 8.6 - 10.4 mg/dL 11/09/2024 4:17 AM CDT [facility] CREATININE 0.83 0.50 - 1.05 mg/dL 11/09/2024 4:17 AM CDT [facility] BUN/CREATININE RATIO SEE NOTE: 6 - 22 (calc) 11/09/2024 4:17 AM CDT [facility] Comment: Not Reported: BUN and Creatinine are within reference range. EGFR 77 > OR = 60 mL/min/1. 73m2 11/09/2024 4:17 AM CDT [facility] UREA NITROGEN (BUN) 17 7 - 25 mg/dL 11/09/2024 4:17 AM CDT [facility] ELECTROLYTE BALANCE 7 7 - 17 mmol/L (calc) 11/09/2024 4:17 AM CDT [facility] CHLORIDE 105 98 - 110 mmol/L 11/09/2024 4:17 AM CDT [facility] Blood BLOOD SPECIMEN / Unknown [facility] / Unknown 11/08/2024 1:50 PM CDT 11/08/2024 1:51 PM CDT Renata Mensah MD CHEMISTRY Final R esult [facility] [address] [place] [address], [place] [phone] * XR MAMMO JOANIE BILAT SCREEN (09/14/2023 [...] care provider. XR MAMMO JOANIE BILAT SCREEN [[id number]] CLINICAL HISTORY: This is an asymptomatic 68 y.o. patient. INDICATION FOR EXAM: Mammogram Screening. TECHNIQUE: CC & MLO views were obtained. This study was evaluated with the assistance of Computer-Aided Detection. Breast Tomosynthesis was used in interpretation. COMPARISON FILM: Yes 08/27/21 [facility] 04/17/20 [facility] FINDINGS: There are scattered areas of fibroglandular density. There are no dominant masses, suspicious micro calcifications or areas of architectural distortion. Renata Mensah MD MAMMO Final R esult * COLONOSCOPY (02/13/2022 8:45 AM STRAND GALVANIZER) 02/13/2022 8:45 AM STRAND GALVANIZER Narrative Transcriptions Dash Lin MD - 02/13/2022 [...] candidate for conscious sedation. The endoscope [id number] was passed through the anus andadvanced to [...] minutes 47 seconds Scope Out: 10:05:25 AM us Dash Lin MD PROCEDURE ORD Final Res ult * (ABNORMAL) XR DXA BONE DENSITY 2 SITES AXIAL [70721.1] (12/08/2021 10:48 AM CDT) Anatomical Region Laterality [...] recommended in 3-5 years. Akilah Rahman PA-C [facility] 12/09/2021 Narrative 12/09/2021 12:48 PM CDT For Patients: Results are automatically released to your [employer] ([email or web address]) account once available, in compliance with federal regulations. This means that you may see your results before your provider has had a chance to review them. Please allow 2-3 business days for your provider to comment on the results. XR DXA Bone Mineral Density (BMD) EXAM LOCATION: [address] [address] PATIENT NAME: Nancy Gooden DATE OF : [...] two scanners are made by the same fishing rod mechanic. PROCEDURE: Dual-energy x-ray absorptiometry performed with routine [...] 10.9%. 10-year probability of hip fracture: 1.7%. Renata Mensah MD DEXA Final R esult * ANTI HCV (04/15/2020 11:05 AM STRAND GALVANIZER) HEPATITIS C ANTIBODY Non-React abram Non-React abram 04/15/2020 6:08 PM STRAND GALVANIZER [facility] Comment:Antibodies to HCV no t detected; does not exclude the possibility of exposure to HCV. Blood BLOOD SPECIMEN / Unknown Venipuncture / Unknown 04/15/2020 11:05 AM STRAND GALVANIZER 04/15/2020 11:05 AM STRAND GALVANIZER Renata Mensah MD SEND OUTS Final R esult [facility] [address] [place] [address], [place] from Last 3 Months or Most Recently Relevant to Health Maintenance Insurance [employer] BL[employer] MR PB ONLY Advance Directives * Full Code (Latest Code Status on File) Date Activated Date Inactivated Comments 08/08/2008 6:56 PM 08/13/2008 11:58 AM * Full Code Date Activated Date Inactivated Comments 08/08/2008 7:29 AM 08/08/2008 6:56 PM Care Teams Neuropsychiatrist Relationship Specialty Start Date End Date Renata Mensah MD PCP - General Family Practice 03/07/10 Heather Cartwright MD Colorectal Surgery Surgery - Colon and Rectal 06/29/11 Dash Lin MD [address] [place] [address] Gastroenterology Gastroenterology 06/29/11
--- OUTSIDE RECORDS SUMMARY | 2024-11-23 15:00 | XMS_ITS | Clinical Summary ---
[facility] Address [address], [place] [address] Care Team Providers Care Design Engineering Technician Name Role Phone Clinician, Not Found MD Primary Care Provider Un available Source Comments You are receiving this document as you are listed as the primary care provider,follow-up provider, or the patient has been referred to you for consultation.This is in compliance with the Medicare and[facility] EHR Incentive Program,which states Providers who transition their patient to another setting of careor provider of care or refers their patient to another provider of care shouldprovide summary care record for each transition of care or referral. [place] Allergies No known active allergies Medications predniSONE (DELTASONE) 20 MG tablet TAKE 3 [...] Date Smoking Tobacco: Never Smokeless Tobacco: Never Comments Unknown Sex and Gender Information Value Date Recorded Sex Assigned at Not on file Legal Sex Female 7:45 AM CDT Gender Identity Not on file Sexual Orientation Not on file Last Filed Vital Signs Vital Sign Reading Time Taken Comments Blood Pressure - - Pulse - - Temperature - - Respiratory Rate - - Oxygen Saturation - - Inhaled Oxygen Concentration - - Weight 65.8 kg (145 lb) 03/19/2020 10:07 AM FORENSIC COMPUTER EXAMINER Height 160 cm (5' 3) 03/19/2020 10:07 AM FORENSIC COMPUTER EXAMINER Body Mass Index 25.69 03/19/2020 10:07 AM FORENSIC COMPUTER EXAMINER Plan of Treatment Health Maintenance Due Date Last Done Comments Colon Cancer Screening Plan Due 1955 Hep C Screening (Preventive Services) 1955 Mammogram 1955 Adult Preventive Visit 02/20/1974 Cholesterol 02/20/2001 Pneumococcal Vaccine 50+ Yrs (1 of 1 - PCV) 02/20/2006 COVID-19 Vaccine (3 - season) 2024 07/02/2020, 06/11/2020 Influenza Vaccine (#1) 2024 , 11/18/2018, 12/27/2017, Additional history exists DTaP/Tdap/Td Vaccine (3 - Tdap) 12/05/2028 12/05/2018, 06/04/2008, 06/29/1992 RSV Vaccine (1 - 1-dose 75+ series) 02/20/2031 Zoster/Shingles Vaccine Completed 05/16/19 20, 12/21/2018, 09/28/2016 HepA Vaccine Aged Out No longer eligi ble based on patient's age to complete this topic HepB Vaccine Aged Out No longer eligi ble based on patient's age to complete this topic Hib Vaccine Aged Out No longer eligi ble based on patient's age to complete this topic IPV (Polio) Vaccine Aged Out No longe r eligible based on patient's age to complete this topic MCV4 Vaccine Aged Out No longer eligi ble based on patient's age to complete this topic Meningococcal B Vaccine Aged Out No l onger eligible based on patient's age to complete this topic Insurance [facility] [employer] Care Teams Design Engineering Technician Relationship Specialty Start Date End Date Clinician, Not Found, [place] [address] PCP - General 03/19/20
[2024-11-23 15:05] VITALS: BP 124/84; PULSE 74; RESP 16; TEMP 37.2; O2SAT 97; BMI 24.0
--- NOTE | 2024-11-23 15:13 | CRLHL7_ITS ---
For Patients: As a result of the Cures Act, medical imaging exams and procedure reports are released immediately into your electronic medical record. You may view this report before your referring provider. If you have questions, please contact your health care provider. Indication: Fall, pain Technique: Right shoulder 3 views. Comparison: None. Findings: No fracture. Alignment normal. Osteopenia. Mild narrowing and spurring at the glenohumeral and acromioclavicular joints. Intact visualized ribs. Chronic fibrotic changes within the visualized lung parenchyma. Impression: No sign of acute fracture. Dictated by Magdiel Longo MD @ 11/23/2024 3:36:19 PM (Electronically Signed)
--- NOTE | 2024-11-23 15:47 | ED.UPPEXIN ---
HPI - Extremity Injury (Upper) General Time Seen by Provider: 15:47 Date Seen: 11/23/24 Chief Complaint: Extremity Pain/Injury, Upper Stated Complaint: fell, injured shoulder Time Seen by Provider: 11/23/24 15:47 Source: patient and RN notes reviewed Mode of arrival: ambulatory Limitations: no limitations History of Present Illness HPI narrative: This 69-year-old female is coming into the ER with complaint of acute right shoulder pain. She was mowing the grass today, tripping and falling on her right shoulder directly. Denies any head trauma, no loss of consciousness. No numbness tingling in this extremity. Nursing staff ordered shoulder x-ray from triage. Patient is consented that she is willing to be seen in the ED hallway, she does agree. Unfortunately this is necessary due to the acuity and volume in the ER. Related Data Home Medications ?Medication ?Instructions ?Recorded ?Confirmed lisinopril 10 mg tablet 10 mg PO DAILY 12/03/21 04/13/24 sertraline 25 mg tablet 12.5 mg PO Q24H 12/03/21 04/13/24 calcium carbonate See Rx Instructions PO .COMPLEX 03/07/22 04/13/24 rosuvastatin 5 mg tablet mg 03/07/22 08/04/22 loratadine 10 mg tablet (Claritin) 10 mg PO QDAY 08/04/22 04/13/24 qygbhbgirssp-Ik-owji-minerals 18 tab PO 08/04/22 08/04/22 mg-0.4 mg tablet Previous Rx's ?Medication ?Instructions ?Recorded cyclobenzaprine 10 mg tablet 10 mg PO TID #15 tabs 04/13/24 hydrocodone 5 mg-acetaminophen 325 1 tab PO Q4-6H PRN pain #15 tabs 04/13/24 mg tablet ketorolac 10 mg tablet 10 mg PO Q8H 5 days #15 tabs 04/13/24 methylprednisolone 4 mg tablets in See Rx Instructions PO .COMPLEX 04/13/24 a dose pack (Medrol (Calin)) #21 ea Allergies Allergy/AdvReac Type Severity Reaction Status Date / Time No Known Drug Allergies Allergy Verified 11/23/24 15:10 Review of Systems Narrative: As per HPI. [facility] Medical History (Updated 11/23/24 @ 16:09 by Rima Guzman MD) No significant past medical history Surgical History (Updated 08/04/22 @ 08:37 by Ivon Rao ~ [facility]) History of back surgery (~2007) ?Z98.890 - Other specified postprocedural states (ICD-10) Social History Smoking Status: Former smoker Do you use any of these nicotine containing products: None Second hand tobacco smoke exposure: No How often do you have a drink containing alcohol: never How often do you have six or more drinks on one occasion: Never AUDIT-C Alcohol total score: 0 Non-prescribed substance use: denies use service: No Exam Const: Vital Signs, click to edit/add: Vital Signs - 24 hr 11/23/24 15:05 Temperature 99.0 F Pulse Rate [Pulse Oximeter] 74 Respiratory Rate 16 Blood Pressure [Ri ght Upper Arm] 124/84 Pulse Oximetry 97 This 69-year-old female is alert, interactive, no apparent distress. She is seen in the ED hallway. She has no pain on her clavicle, no pain over the AC joint. Glenohumeral joint palpates intact. She has pain when I attempt forward flexion above 90? or with abduction just below 90?. She has definite pain with impingement. Her shoulder is so painful with the range of motion at the elevated angles that it is extremely painful to abduct again. She still has preserved biceps strength with her arm along her side. Distal CMS is intact. She has no pain with isolated range of motion about the elbow or her lower arm. She has no pain posteriorly over the scapula on palpation. She is breathing easily on room air, no tachypnea, neck full range of motion without any pain. Documenting provider has reviewed patient's vital signs: yes Course Course ED Course: Reviewed with patient I suspect a rotator cuff injury, certainly could be a rotator cuff tear with her limits mobility and range of motion. We have discussed follow up in clinic or with Orthopedics, she would like me to make an orthopedics appointment. Will provide a sling for comfort. We have reviewed her negative x-ray imaging for fracture. At this time will discharge to home for further outpatient orthopedic management. I do believe she is likely to need an MRI from my examination today but this will be better defined later with Orthopedics once this injury is had time to settle down. Vital Signs Vital signs: Initial Vital Signs Temperature 99.0 F 11/23/24 15:05 Temperature Source Temporal Artery Scan 11/23/24 15:05 Pulse Rate 74 11/23/24 15:05 Respiratory Rate 16 11/23/24 15:05 Blood Pressure 124/84 11/23/24 15:05 Blood Pressure Mean 97 11/23/24 15:05 Blood Pressure Position Sitting 11/23/24 15:05 Pulse Oximetry 97 11/23/24 15:05 Vital Signs Temperature 99.0 F 11/23/24 15:05 Pulse Rate 74 11/23/24 15:05 Respiratory Rate 16 11/23/24 15:05 Blood Pressure 124/84 11/23/24 15:05 Pulse Oximetry 97 11/23/24 15:05 Temperature 99.0 F 11/23/24 15:05 Pulse Rate 74 11/23/24 15:05 Respiratory Rate 16 11/23/24 15:05 Blood Pressure 124/84 11/23/24 15:05 Pulse Oximetry 97 11/23/24 15:05 MDM - Extremity Injury (Upper) Imaging Data XR right shoulder: Attestation: I have reviewed the pertinent imaging results. My impression: Did visualize patient's x-ray, see no acute fracture. Radiologist's impression: Patient: GENE CAMPOS Facility:?[facility] Patient ID:?[id number] Site Patient ID:?[id number]. Site :?[id number] Study:?XRay-Shoulder 3V-11/23/2024 3:24:15 PM Ordering Physician:?PROVIDER TEMP Final Report: Indication: Fall, pain Technique: Right shoulder 3 views. Comparison: None. Findings: No fracture. Alignment normal. Osteopenia. Mild narrowing and spurring at the glenohumeral and acromioclavicular joints. Intact visualized ribs. Chronic fibrotic changes within the visualized lung parenchyma. Impression: No sign of acute fracture. Dictated by Magdiel Longo MD @ 11/23/2024 3:36:19 PM (Electronic Signature) Discharge Plan Discharge Clinical Impression: Injury of shoulder Qualifiers: Encounter type: initial encounter Laterality: right Qualified Code(s): S49.91XA - Unspecified injury of right shoulder and upper arm, initial encounter Patient Disposition: Home, Self-Care Condition: Stable Instructions: Rotator Cuff Injury (ED) Additional Instructions: [facility] WednesdayNovember 28, check in at 940am. You will see Dr. Howell. Use sling as needed for comfort, do do the pendulum exercises 2 to 4 times a day to help prevent frozen shoulder syndrome while using the sling. Can use ice to help decrease pain and any inflammation. Can use Tylenol 1000 mg 3 times a day baseline for pain. Can supplement with ibuprofen per bottle directions as needed for extra pain. Activity Level: Activity as Tolerated Prescriptions: No Action qvfzvhsnfbeh-Me-rtue-minerals 18-0.4 mg tablet PO loratadine [Claritin] 10 mg tablet 10 mg PO QDAY lisinopril 10 mg tablet 10 mg PO DAILY Patient Comments: TAKE ONE TABLET BY MOUTH ONE TIME DAILY sertraline 25 mg tablet 12.5 mg PO Q24H Patient Comments: Take 1 Tablet (25 mg) by mouth every morning cyclobenzaprine 10 mg tablet 10 mg PO TID Qty: 15 0RF hydrocodone-acetaminophen 5-325 mg tablet 1 tab PO Q4-6H PRN (Reason: pain) Qty: 15 0RF ketorolac 10 mg tablet 10 mg PO Q8H 5 Days Qty: 15 0RF methylprednisolone [Medrol (Calin)] 4 mg tablets,dose pack See Rx Instructions .ROUTE .COMPLEX Qty: 21 0RF Rx Instructions: orally per package directions rosuvastatin 5 mg tablet Patient Comments: TAKE ONE TABLET BY MOUTH AT BEDTIME calcium carbonate [Calcium 500] See Rx Instructions PO .COMPLEX Rx Instructions: orally; Follow Up/Referrals: Renata Mensah MD [Primary Care Provider, Family Practice] Stand Alone [facility]
== END 2024-11-23 16:15 | disposition home or self-care (01) ==
PROVIDERS: Emergency Provider Family Medicine; PCP Family Medicine
DX: S49.91XA Unspecified injury of right shoulder and upper arm, initial encounter (principal); W01.0XXA Fall on same level from slipping, tripping and stumbling without subsequent striking against object, initial encounter; Y93.H2 Activity, gardening and landscaping
CPT/HCPCS: 73030; 99283

== ENCOUNTER 2024-12-05 07:55 | Outpatient (CLI) | payer MEDICARE, BC, SELFPAY ==
--- NOTE | 2024-12-05 08:15 | MR_ITS ---
EXAM: MRI of the RIGHT SHOULDER without contrast CLINICAL: Right shoulder pain. Evaluate for rotator cuff tear. COMPARISONS: X-rays dated 11/23/2024. TECHNICAL: Multiplanar multisequence MRI of the right shoulder was obtained. SEDATION: None. CONTRAST: None. FINDINGS: Rotator cuff: Supraspinatus/Infraspinatus: There is full-thickness tearing throughout the distal supraspinatus and infraspinatus tendons with tendon retraction to the level of the mid to medial humeral head. Suspect mild fatty atrophy of the central aspect of the infraspinatus muscle about the tendon. No significant supraspinatus muscle fatty atrophy. Teres minor: No tendinosis, tear or atrophy. Subscapularis: There is high-grade partial tearing with associated attenuation of the far superior distal tendon on axial series 4 image 15. Partial interstitial tearing also involves the more proximal superior subscapularis tendon on sagittal series 9 images 17-18. Moderate tendinosis of the remainder of the distal tendon. No significant fatty atrophy of the muscle. Bursae: Subacromial-subdeltoid: Mild bursal fluid. Subcoracoid: Marked bursal fluid. Coracoacromial arch: Acromion morphology: Type II. No os acromiale. Acromiohumeral space: Moderately narrowed. Coracohumeral space: Within normal limits. Biceps tendon, long head: Intra-articular tendon is not visualized consistent with full-thickness retracted rupture. Glenohumeral joint: Small volume of fluid within the glenohumeral joint. Articular cartilage: No discrete chondral defects identified as visualized. Capsule: No evidence of capsular thickening or injury. Labrum: There is marked attenuation of the superior labrum and throughout the posterior superior labrum. Inferior labrum is also attenuated. No perilabral cyst identified. Bones: No suspicious marrow signal alteration, fracture or dislocation. Small osseous cystic change is seen to involve the lesser tuberosity of the proximal humerus. Acromioclavicular joint: Moderate changes of arthrosis with reactive marrow edema about the articulation. No AC joint injury/widening. IMPRESSION: 1. Full thickness tearing throughout the distal supraspinatus and infraspinatus tendons with tendon retraction to the level of the mid to medial humeral head. 2. High-grade partial tearing/attenuation of the far superior distal subscapularis tendon. Partial interstitial tearing also involves the more proximal superior subscapularis tendon. Moderate tendinosis of the remainder of the subscapularis tendon. 3. Full-thickness retracted rupture of the long head biceps tendon. 4. Marked attenuation/degeneration of the superior and posterior superior labrum as well as involving the inferior labrum. 5. Moderate AC joint arthrosis. 6. Marked subcoracoid bursitis. JCZ Electronically signed on 12/05/2024 10:40:00 AM by Michael Vizcaino D.O.
== END 2024-12-05 07:56 | disposition home or self-care (01) ==
LOC: MRI 07:56
PROVIDERS: PCP Family Medicine; Visit Provider Orthopaedic Surgery Sports Medicine
DX: M25.511 Pain in right shoulder (principal); M75.101 Unspecified rotator cuff tear or rupture of right shoulder, not specified as traumatic; S46.811A Strain of other muscles, fascia and tendons at shoulder and upper arm level, right arm, initial encounter; M19.011 Primary osteoarthritis, right shoulder; S49.91XA Unspecified injury of right shoulder and upper arm, initial encounter; M75.51 Bursitis of right shoulder
CPT/HCPCS: 73221

== ENCOUNTER 2024-12-13 06:46 | Day surgery (SDC) | payer MEDICARE, BC, SELFPAY ==
[2024-12-13] VITALS (22 sets, daily range): BP systolic 101–130; BP diastolic 57–87; PULSE 51–68; RESP 14–19; TEMP 36.1–37.1; O2SAT 94–100; BMI 24.8
[2024-12-13] MEDS: LACTATED RINGERS 1000 ML 1,000 ML 100 ML IV ×2 (07:00→12:12)
[2024-12-13] MEDS: SODIUM CHLORIDE 0.9 % (FLUSH) 10 ML SYRINGE IVF (07:34)
[2024-12-13] MEDS: MIDAZOLAM HCL 1 MG/ML inj IVP (08:15)
--- NOTE | 2024-12-13 08:18 | SUR.PREOP ---
TIME?OUT:?0815 PT/RN/MDA?VERIFICATION?OF?SURGICAL?SITE,?PROCEDURE,?AND?CONSENT OBTAINED?PRIOR?TO?INVASIVE?PROCEDURE.
--- NOTE | 2024-12-13 08:31 | W.PM.H&PU ---
History & Physical Update History & Physical Update H&P Reviewed and patient assessed: No changes noted
[2024-12-13] MEDS: EPINEPHrine 1 MG in SODIUM CHLORIDE IRRIG SOLUTION 3,000 ML 9003 MG IRRIGATION ×4 (09:04→10:37)
--- NOTE | 2024-12-13 10:52 | P.ORPRC_ITS ---
Procedure Note Date of procedure: 12/13/24 Procedure: PREOPERATIVE DIAGNOSES: 1. Right shoulder rotator cuff tear - full-thickness supraspinatus, infraspinatus and upper half subscapularis 2. Right shoulder AC degenerative joint disease, primary, moderate-severe 3. Right shoulder long head biceps traumatic rupture with retraction 4. Right shoulder labral tearing 5. Right shoulder subacromial impingement syndrome. POSTOPERATIVE DIAGNOSES: 1. Right shoulder rotator cuff tear - full-thickness supraspinatus, infraspinatus and upper half subscapularis 2. Right shoulder AC degenerative joint disease, primary, moderate-severe 3. Right shoulder long head biceps traumatic rupture with retraction 4. Right shoulder labral tearing 5. Right shoulder subacromial impingement syndrome. NAME OF OPERATION: 1. Right shoulder arthroscopic rotator cuff repair - full-thickness supraspinatus and infraspinatus as well as upper half subscapularis 2. Right shoulder arthroscopic distal clavicle excision 3. Right shoulder arthroscopic extensive glenohumeral debridement 4. Right shoulder arthroscopic bursectomy, subacromial decompression/partial acromioplasty. SURGEON: Job Colin MD CURRICULUM DIRECTOR: Singh Khan PA-C. Of note, a skilled medical administrative assistant was critical for this case to aide in patient positioning, suture manipulation, arm positioning, instrument positioning, and closure. ANESTHESIA: General plus preoperative supraclavicular block. EBL: 25 mL IMPLANTS: Arthrex 4.75 mm BioComposite SwiveLock suture anchor (x1); Arthrex 5.5 mm BioComposite double loaded corkscrew suture anchor (x2); Arthrex 5.5 mm BioComposite SwiveLock suture anchor (x2); COMPLICATIONS: None evident INDICATIONS: The patient is a pleasant, 69-year-old female who has experienced right shoulder pain that has been increasing in recent time. Physical exam and imaging were consistent with a rotator cuff tear. Given their findings, as well as the weakness and pain, and inadequate response to nonoperative management, recommendation was made for surgery. FINDINGS: Exam under anesthesia revealed stable shoulder with excellent range of motion. The diagnostic arthroscopy revealed healthy chondral surfaces of the glenohumeral joint. The Subscapularis tendon was torn from its upper half with retraction medially. The long head of the biceps tendon was absent from the joint and did show a small remnant within the bicipital groove. There was a biceps stump still attached to the biceps origin. The superior rotator cuff tendon was found to be torn full-thickness including the entire supraspinatus and majority infraspinatus with retraction to the mid humeral head. The labrum was torn near circumferentially sparing the far inferior and posterior inferior regions. No loose bodies were identified within the pouch or subscapularis recess. PROCEDURE: Following a thorough discussion of risks, benefits, and alternatives, consent was obtained and the right shoulder was marked. The patient was brought to the operating room and placed supine on the operating table. Induction of anesthesia was completed after preoperative supraclavicular block was administered in preop holding. Appropriate time out was performed identifying proper patient, site, and procedure. 2 g IV Ancef was administered within 1 hour of incision preoperatively. The right upper extremity was prepped and draped in the appropriate sterile fashion using ChloraPrep prep. This was after the patient was positioned in the beach chair with their head in neutral alignment and all bony prominences well padded. The shoulder was insufflated with 20mL of normal saline via an 18g spinal needle from a posterior approach. An 11 blade skin incision allowed a blunt trochar to be inserted and diagnostic arthroscopy to be performed with the findings as noted above. An anterior portal was established with an outside in technique. This allowed the probe to be inserted and confirm the diagnostic arthroscopic findings. The shaver was then inserted and allowed debridement of the anterior, superior, and posterosuperior labrum. Additionally, the long head of the biceps tendon stump was debrided at the origin but the tendon was also debrided in the bicipital groove. There was prominent lesser tuberosity with enthesophyte which was also worthy of debridement with the torpedo shaver. Following this, the upper border subscapularis was repaired after debriding the lesser tuberosity with the shaver and [place] cautery. Subscapularis was captured in horizontal mattress fashion with a fiber tape suture. A FiberLink was also utilized on the more lateral aspect and a luggage tag fashion passed between the FiberTape tails to allow a broader footprint compression. The tails were brought to a single anchor in the lesser tuberosity with excellent reapproximation of the subscap tendon and good excursion/tension. Thereafter, the subacromial space was entered. Here, a complete bursectomy and partial acromioplasty/subacromial decompression was performed with a combination of radiofrequency ablator, the shaver, and a 5.5 mm bur. Additionally, distal clavicle excision was performed with the bur. 8 mm of distal clavicle was resected based on the with of our bur. Further inspection of the supraspinatus and infraspinatus rotator cuff was performed. This identified the tear as noted above. The margins of the tear were debrided, and the greater tuberosity was debrided with a combination of the apollo cautery, shaver, and bur on reverse setting. After gentle decortication, a speed bridge configuration was planned.[ 2 medial corkscrew suture anchors were placed and the sutures were passed through the rotator cuff in independent fashion and later tied given us 8 tails to reapproximate. There was some delamination of the posterior infraspinatus and thus these sutures were passed twice through the inferior leaflet and the more superior leaflet. After time knees, there was a small dog-ear posteriorly and laterally. The posterior 1 was addressed with 1 of the posterolateral eyelet sutures and the more central lateral 1 was addressed with a SutureTape passed in horizontal mattress fashion with each of these tails also secured with a lateral row SwiveLock suture anc hors. The rotator cuff showed excellent reapproximation of the greater tuberosity with good security upon probing. Prior to anchor belly dump driver removal, the eyelet sutures were tugged on for each anchor and found that the anchor had excellent stability within the bone. The shoulder was placed through range of motion and found to be stable. The rotator cuff was re-probed and found to be stable. Instruments were removed. Excess fluid was drained, closure performed with 4-0 Monocryl and Steri-Strips. Dressings were applied. Sling was applied. The patient was awoken from anesthesia and transferred to the PACU in stable condition. A skilled medical administrative assistant was critical for this case to aid in patient positioning, limb positioning, skill to manipulate arthroscopic instruments and camera, suture management, patient safety, and closure. PLAN: 1. Elbow, forearm, wrist and digit range of motion as tolerated. 2. Encouraged ice. 3. Hydrocodone for pain as needed. 4. Sling at all times except for ROM and showering. 5. Follow up with PA visit in 1-2 weeks for wound check. Initiate physical therapy following that visit for passive range of motion. Initiate active assisted range of motion at 4-6 weeks. May do pendulums now.
--- NOTE | 2024-12-13 11:08 | P.ANES_ITS ---
Anesthesia Charges Start Date/Time Anesthesia Start Date: 12/13/24 Anesthesia Start Time: 08:26 Stop Date/Time Anesthesia Stop Date: 12/13/24 Anesthesia Stop Time: 11:10 Coding CPT Codes CPT Codes: ANESTH SURGERY OF SHOULDER - 70164 ([id number]) P2 - PATIENT W/MILD SYST DISEASE, QK - LEAF BLENDER 2-4 CNCRNT ANES PROC, QX - SOLE STITCHER HAND SVC W/ MD MED DIRECTION
--- NOTE | 2024-12-13 11:08 | W.ANESCHARGE ---
Anesthesia Charges Start Date/Time Anesthesia Start Date: 12/13/24 Anesthesia Start Time: 08:26 Stop Date/Time Anesthesia Stop Date: 12/13/24 Anesthesia Stop Time: 11:10 Coding CPT Codes CPT Codes: ANESTH SURGERY OF SHOULDER - 58563 ([id number]) P2 - PATIENT W/MILD SYST DISEASE, QK - DINING HOST 2-4 CNCRNT ANES PROC, QX - PRODUCTION CONSULTANT SVC W/ MD MED DIRECTION
[2024-12-13] MEDS: ONDANSETRON 2 MG/ML inj 4 MG IVP (11:38)
[2024-12-13] MEDS: PROCHLORPERAZINE 5 MG/ML VIAL IVP (11:59)
--- NOTE | 2024-12-13 13:07 | P.ANES_ITS ---
Anesthesia Charges Start Date/Time Anesthesia Start Date: 12/13/24 Anesthesia Start Time: 08:26 Stop Date/Time Anesthesia Stop Date: 12/13/24 Anesthesia Stop Time: 11:10 Coding CPT Codes CPT Codes: ANESTH NOSE/SINUS SURGERY - 43608 ([id number]) QK - GUILLOTINE TRIMMER 2-4 CNCRNT ANES PROC, QX - PRODUCTION SUPERINTENDENT HYDRO SVC W/ MD MED DIRECTION, P2 - PATIENT W/MILD SYST DISEASE
--- NOTE | 2024-12-13 13:07 | W.ANESCHARGE ---
Anesthesia Charges Start Date/Time Anesthesia Start Date: 12/13/24 Anesthesia Start Time: 08:26 Stop Date/Time Anesthesia Stop Date: 12/13/24 Anesthesia Stop Time: 11:10 Coding CPT Codes CPT Codes: ANESTH NOSE/SINUS SURGERY - 32519 ([id number]) QK - WEEKEND CAREGIVER 2-4 CNCRNT ANES PROC, QX - PROPOSAL CONSULTANT SVC W/ MD MED DIRECTION, P2 - PATIENT W/MILD SYST DISEASE
--- NOTE | 2024-12-13 13:08 | W.PM.NB ---
Nerve Block Nerve Block Time Seen by Provider: 08:15 Date Seen: 12/13/24 Type of block requested by surgeon for post-operative analgesia: supraclavicular Side: right Time out performed: Yes Verification of patient name: Yes Verification of date of : Yes Site marking: site marked Name of person performing procedure: Marco Continuous monitoring Was continuous monitoring of O2 sat, B/P, melt supervisor, recorded every 15 minutes?: Yes Procedure Checklist: sterile prep, needles and gloves Ultrasound guided. Images saved: Yes Medications given in 5ml increments after negative aspiration: Ropivicaine %: 0.5 mL: 20 Needle gauge: 22 Precedex (mcg): 25 Patient tolerated procedure well: Yes Block Charges Block Charge (with Pro Fee): Brachial Plexus Use of Ultrasound Machine for Block: Yes- US Guidance/pain block
== END 2024-12-13 15:11 | disposition home or self-care (01) ==
PROVIDERS: PCP Family Medicine; Visit Provider Orthopaedic Surgery Sports Medicine
PROC: (CPT 29805; principal; 2024-12-13 08:30)
DX: M75.121 Complete rotator cuff tear or rupture of right shoulder, not specified as traumatic (principal); M19.011 Primary osteoarthritis, right shoulder; S46.111A Strain of muscle, fascia and tendon of long head of biceps, right arm, initial encounter; S43.431A Superior glenoid labrum lesion of right shoulder, initial encounter; M75.41 Impingement syndrome of right shoulder; G89.18 Other acute postprocedural pain
CPT/HCPCS: 29827; 29826; 29824; 29823; 00160; 01630; 64415; 76942; C1713; J0169; J0330; J0690; J0780; J1100; J2250; J2405; J2704; J2795; J3010; J3490; J7120; L3670